=== PATIENT | female | born 1960 | race Caucasian/White ===

== ENCOUNTER 2020-12-24 09:52 | Outpatient (REF) | payer MEDICAID, SELFPAY ==
--- NOTE | ~2020-12-24 | XR_ITS ---
EXAMINATION: CR X-RAY KNEE BILATERAL 4 VIEW CLINICAL INFORMATION: The pain. COMPARISON: None TECHNIQUE: 4 views each of the bilateral knees were obtained FINDINGS: There is no acute fracture or dislocation. The joint spaces are unremarkable. There is no joint effusion. The soft tissues are unremarkable. XR/XR knee RT 4V IMPRESSION: Unremarkable bilateral knees.
--- NOTE | ~2020-12-24 | XR_ITS ---
EXAMINATION: CR X-RAY KNEE BILATERAL 4 VIEW CLINICAL INFORMATION: The pain. COMPARISON: None TECHNIQUE: 4 views each of the bilateral knees were obtained FINDINGS: There is no acute fracture or dislocation. The joint spaces are unremarkable. There is no joint effusion. The soft tissues are unremarkable. XR/XR knee LT 4V IMPRESSION: Unremarkable bilateral knees.
== END 2020-12-24 09:53 | disposition home or self-care (01) ==
LOC: HO.XRAY 09:52
PROVIDERS: PCP Internal Medicine Geriatric Medicine; Visit Provider Internal Medicine Geriatric Medicine
DX: M25.561 Pain in right knee (principal); M25.562 Pain in left knee
CPT/HCPCS: 73564

== ENCOUNTER → 2021-01-15 08:33 | Outpatient (BNVA) | payer MEDICAID, SELFPAY | PROVIDERS: PCP Internal Medicine Geriatric Medicine; Visit Provider Anesthesiology | DX: M47.816 Spondylosis without myelopathy or radiculopathy, lumbar region (principal); M54.81 Occipital neuralgia; M54.5 Low back pain; G89.4 Chronic pain syndrome | CPT/HCPCS: 99202 ==

== ENCOUNTER 2021-06-09 12:25 | Outpatient (REF) | payer MEDICAID, SELFPAY ==
--- NOTE | ~2021-06-09 | MM_ITS ---
EXAMINATION: MM SCREENING DIGITAL BREAST TOMOSYNTHESIS, BILATERAL CLINICAL INFORMATION: Screening. Asymptomatic. The lifetime risk of breast cancer based on the Tyrer-Cuzick Model is 10%. COMPARISON: Mammography: 08/13/2019, 05/29/2018, 04/18/2017 TECHNIQUE: Digital breast tomosynthesis is performed in both the craniocaudal and mediolateral oblique views along with computer-aided detection (CAD). Synthesized 2D images are generated from the tomosynthesis. FINDINGS: There are scattered areas of fibroglandular density (ACR BI-RADS breast composition Category b). There are no significant masses, abnormal calcifications, or other abnormalities. MM/MM tomosynthesis screening BI IMPRESSION: No mammographic evidence of malignancy. ASSESSMENT: BI-RADS 1: Negative RECOMMENDATION: Routine annual mammography screening. This patient's information was entered into a reminder system with a target due date for their next mammogram.
== END 2021-06-09 12:26 | disposition home or self-care (01) ==
LOC: HO.MAMMO 12:25
PROVIDERS: PCP Internal Medicine Geriatric Medicine; Visit Provider Internal Medicine Geriatric Medicine
DX: Z12.31 Encounter for screening mammogram for malignant neoplasm of breast (principal)
CPT/HCPCS: 77063; 77067

== ENCOUNTER → 2022-04-02 20:30 | Outpatient (REF) | payer MEDICAID, SELFPAY | LOC: HO.SL 20:30 | PROVIDERS: PCP Internal Medicine Geriatric Medicine; Visit Provider Internal Medicine Geriatric Medicine | DX: G47.33 Obstructive sleep apnea (adult) (pediatric) (principal) | CPT/HCPCS: 95810 ==

== ENCOUNTER → 2022-06-24 12:53 | Outpatient (BNVA) | payer MEDICAID, SELFPAY | PROVIDERS: PCP Internal Medicine Geriatric Medicine; Visit Provider Nurse Practitioner Family | DX: M47.812 Spondylosis without myelopathy or radiculopathy, cervical region (principal); M54.12 Radiculopathy, cervical region; M62.838 Other muscle spasm; M25.512 Pain in left shoulder; G89.4 Chronic pain syndrome | CPT/HCPCS: 99212 ==

== ENCOUNTER 2022-11-09 10:43 | Outpatient (REF) | payer MEDICAID, SELFPAY ==
--- NOTE | ~2022-11-09 | XR_ITS ---
EXAMINATION: XR CERVICAL SPINE. XR SHOULDER, LEFT. CLINICAL INFORMATION: Chronic neck pain and left shoulder COMPARISON: Radiographs 04/09/2020 TECHNIQUE: 5 views of the cervical spine. 4 views of the left shoulder. FINDINGS: Cervical spine: Moderate-severe degenerative disc disease at C5-C6 with slight retrolisthesis. Vertebral disc heights are otherwise preserved. Uncovertebral hypertrophy mildly narrowing the left C5-C6 neural foramen. No fracture or prevertebral soft tissue swelling. No significant change. Left shoulder: Normal alignment. No significant degenerative findings. No acute abnormality. XR/XR shoulder LT min 2V IMPRESSION: CERVICAL SPINE: Moderate-severe degenerative disc disease at C5-C6 with slight retrolisthesis. No significant change. LEFT SHOULDER: Unremarkable.
--- NOTE | ~2022-11-09 | XR_ITS ---
EXAMINATION: XR CERVICAL SPINE. XR SHOULDER, LEFT. CLINICAL INFORMATION: Chronic neck pain and left shoulder COMPARISON: Radiographs 04/09/2020 TECHNIQUE: 5 views of the cervical spine. 4 views of the left shoulder. FINDINGS: Cervical spine: Moderate-severe degenerative disc disease at C5-C6 with slight retrolisthesis. Vertebral disc heights are otherwise preserved. Uncovertebral hypertrophy mildly narrowing the left C5-C6 neural foramen. No fracture or prevertebral soft tissue swelling. No significant change. Left shoulder: Normal alignment. No significant degenerative findings. No acute abnormality. XR/XR cervical spine 5V IMPRESSION: CERVICAL SPINE: Moderate-severe degenerative disc disease at C5-C6 with slight retrolisthesis. No significant change. LEFT SHOULDER: Unremarkable.
== END 2022-11-09 10:44 | disposition home or self-care (01) ==
LOC: HO.XRAY 10:43
PROVIDERS: PCP Internal Medicine Geriatric Medicine; Visit Provider Internal Medicine Geriatric Medicine
DX: M54.2 Cervicalgia (principal); M79.602 Pain in left arm
CPT/HCPCS: 72050; 73030

== ENCOUNTER 2023-07-06 10:46 | Outpatient (REF) | payer MEDICAID, SELFPAY ==
[2023-07-06 12:50] LABS: Alanine Aminotransferase 11 U/L (0-31); Albumin Level 4.3 g/dL (3.5-5.0); Alkaline Phosphatase 53 U/L (39-117); Anion Gap 13 (12-20); Aspartate Amino Transferase 16 U/L (5-31); Bilirubin Total 0.4 mg/dL (0.0-1.0); Blood Urea Nitrogen 11 mg/dL (9-16); Calcium 9.7 mg/dL (8.4-10.2); Carbon Dioxide 24 mmol/L (22-29); Chloride 109 mmol/L (96-108); Cholesterol 240 mg/dL (<200); Estimated Glomerular Filt Rate > 60; Glucose Random 90 mg/dL (60-115); HDL Cholesterol 51 mg/dL (>40); LDL Cholesterol Calculated 164 mg/dL (<100); Potassium 4.1 mmol/L (3.3-5.1); Sodium 142 mmol/L (135-145); Total Protein 7.5 g/dL (6.5-8.0); Triglycerides 126 mg/dL (<150)
== END 2023-07-06 10:47 | disposition home or self-care (01) ==
LOC: HO.HHCL 10:46
PROVIDERS: Visit Provider Internal Medicine Geriatric Medicine
DX: E78.00 Pure hypercholesterolemia, unspecified (principal); Z79.899 Other long term (current) drug therapy
CPT/HCPCS: 36415; 80053; 80061

== ENCOUNTER 2023-08-01 09:54 | Outpatient (AMB) | payer MEDICAID, SELFPAY ==
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
[2023-08-01 10:01] VITALS: BMI 29.2
== END 2023-08-01 10:38 | disposition home or self-care (01) ==
PROVIDERS: PCP Internal Medicine Geriatric Medicine; Visit Provider Orthopaedic Surgery
DX: M25.512 Pain in left shoulder (principal); M54.12 Radiculopathy, cervical region
CPT/HCPCS: 20610; 99204

== ENCOUNTER → 2023-08-01 09:54 | Outpatient (BNVA) | payer MEDICAID, SELFPAY | PROVIDERS: PCP Internal Medicine Geriatric Medicine; Visit Provider Orthopaedic Surgery | DX: M54.12 Radiculopathy, cervical region (principal); M25.512 Pain in left shoulder | CPT/HCPCS: 20610; 99202; J0665; J1100 ==

== ENCOUNTER 2023-10-10 13:30 | Outpatient (REF) | payer MEDICARE, MEDICAID, SELFPAY ==
[2023-10-12 22:19] LABS: TS Negative Control Passed; TS Panel A 1; TS Panel B 0; TS Positive Control Passed; TSpotTB Negative (Negative)
== END 2023-10-10 13:31 | disposition home or self-care (01) ==
LOC: HO.HHCL 13:30
PROVIDERS: Visit Provider Internal Medicine Geriatric Medicine
DX: Z11.1 Encounter for screening for respiratory tuberculosis (principal)
CPT/HCPCS: 36415; 86481

== ENCOUNTER 2023-10-25 12:50 | Outpatient (REF) | payer MEDICARE, MEDICAID, SELFPAY | END 2023-10-25 12:51 | disposition home or self-care (01) | LOC: HO.MAMMO 12:50 | PROVIDERS: PCP Internal Medicine Geriatric Medicine; Visit Provider Internal Medicine Geriatric Medicine | DX: Z12.31 Encounter for screening mammogram for malignant neoplasm of breast (principal) | CPT/HCPCS: 77063; 77067 ==

== ENCOUNTER → 2023-10-25 13:45 | Outpatient (BNV) | payer MEDICARE, MEDICAID, SELFPAY | PROVIDERS: PCP Internal Medicine Geriatric Medicine; Visit Provider Radiology Diagnostic Radiology | DX: Z12.31 Encounter for screening mammogram for malignant neoplasm of breast (principal) | CPT/HCPCS: 77063; 77067 ==

== ENCOUNTER 2023-11-04 10:19 | Outpatient (REF) | payer MEDICARE, MEDICAID, SELFPAY ==
[2023-11-04 12:39] LABS: ~HepC Num1 0.27 S/CO (0.00-0.79); ~Hepatitis C Antibody Nonreactive (Nonreactive)
[2023-11-04 13:20] LABS: Alanine Aminotransferase 11 U/L (0-31); Albumin Level 4.3 g/dL (3.5-5.0); Alkaline Phosphatase 50 U/L (39-117); Anion Gap 13 (12-20); Aspartate Amino Transferase 15 U/L (5-31); Bilirubin Total 0.5 mg/dL (0.0-1.0); Blood Urea Nitrogen 11 mg/dL (9-16); Calcium 9.7 mg/dL (8.4-10.2); Carbon Dioxide 27 mmol/L (22-29); Chloride 108 mmol/L (96-108); Cholesterol 205 mg/dL (<200); Estimated Glomerular Filt Rate > 60; Glucose Random 84 mg/dL (60-115); HDL Cholesterol 55 mg/dL (>40); LDL Cholesterol Calculated 126 mg/dL (<100); Potassium 4.5 mmol/L (3.3-5.1); Sodium 143 mmol/L (135-145); Total Protein 7.5 g/dL (6.5-8.0); Triglycerides 122 mg/dL (<150)
[2023-11-04 13:28] LABS: TSH reflex Free T4 1.51 uIU/mL (0.32-4.0)
== END 2023-11-04 10:20 | disposition home or self-care (01) ==
LOC: HO.HHCL 10:19
PROVIDERS: Visit Provider Nurse Practitioner Family
DX: Z12.11 Encounter for screening for malignant neoplasm of colon (principal); I10 Essential (primary) hypertension
CPT/HCPCS: 36415; 80053; 80061; 84443; 86803

== ENCOUNTER 2023-11-16 12:25 | Outpatient (REF) | payer MEDICARE, MEDICAID, SELFPAY ==
--- NOTE | ~2023-11-16 | MM_ITS ---
EXAMINATION: BONE DENSITOMETRY CLINICAL INDICATION: Postmenopausal bone density. COMPARISON: This is the patient's baseline examination. TECHNIQUE: Using a TruQu DXA System (software version: 13.1) manufactured by [employer], dual-energy x-ray absorptiometry was performed of the lumbar spine and left hip. The images are of good technical quality. Summary results are attached. FINDINGS: LEFT FEMUR, NECK: BMD 0.643 g/cm2, Z-score -1.3, T-score -2.8, osteoporosis. LEFT FEMUR, TOTAL: BMD 0.686 g/cm2, Z-score -1.3, T-score -2.6, osteoporosis. AP SPINE L1-L4: BMD 0.753 g/cm2, Z-score -1.8, T-score -3.6, osteoporosis. IDENTIFIED RISK FACTORS: Bilateral ovariectomy, early menopause, secondary osteoporosis, glucocorticoids (chronic), hysterectomy, osteoporosis. HISTORY OF FRACTURE: None listed. MEDICATIONS: Multivitamin, vitamin D. MM/XR DEXA axial skeleton IMPRESSION: 1. DIAGNOSIS: Osteoporosis based on the lowest T-score value of -3.6 in the lumbar spine applying World Health Organization criteria. 2. 10-YEAR FRACTURE RISK PREDICTION, FRAX: According to the guidelines, FRAX calculation should only be performed on patients in the osteopenia bone density category. Therefore, FRAX was not performed on this patient.? 3. Treatment Recommendations: NOF guidelines recommend consideration for treatment in postmenopausal women and men age 50 and older presenting with the following: -A hip or vertebral (clinical or morphometric) fracture. -T-score less than or equal to -2.5 at the femoral neck or spine after appropriate evaluation to exclude secondary causes. -Low bone mass at the hip or spine and a 10-year fracture probability by FRAX of greater than or equal to 3% for hip fracture or greater than or equal to 20% for major osteoporotic fracture based on the [place] adapted WHO algorithm. 4. Other Recommendations: All treatment decisions require clinical judgment and consideration of individual patient factors, including patient preferences, comorbidities, previous drug use, risk factors not captured in the FRAX model (e.g. frailty, falls, vitamin D deficiency, increased bone turnover, interval significant decline in bone density) and possible under or overestimation of fracture risk by FRAX. Additional medical evaluation for secondary cause of low bone mineral density may be appropriate. FUTURE SCAN RECOMMENDATION: People with diagnosed cases of osteoporosis or at high risk for fracture should have regular bone mineral density tests. For patients eligible for Medicare, routine testing is allowed once every 2 years. The testing frequency can be increased to one year for patients who have rapidly progressing disease, those who are receiving or discontinuing medical therapy to restore bone mass, or have additional risk factors.
== END 2023-11-16 12:26 | disposition home or self-care (01) ==
LOC: HO.MAMMO 12:25
PROVIDERS: PCP Internal Medicine Geriatric Medicine; Visit Provider Nurse Practitioner Family
DX: Z13.820 Encounter for screening for osteoporosis (principal); Z78.0 Asymptomatic menopausal state; Z91.89 Other specified personal risk factors, not elsewhere classified
CPT/HCPCS: 77080

== ENCOUNTER 2023-11-22 10:56 | Outpatient (REF) | payer MEDICARE, MEDICAID, SELFPAY ==
[2023-11-22 12:36] LABS: Anion Gap 13 (12-20); Blood Urea Nitrogen 9 mg/dL (9-16); Calcium 10.1 mg/dL (8.4-10.2); Carbon Dioxide 28 mmol/L (22-29); Chloride 104 mmol/L (96-108); Estimated Glomerular Filt Rate > 60; Glucose Random 96 mg/dL (60-115); Potassium 3.7 mmol/L (3.3-5.1); Sodium 141 mmol/L (135-145)
== END 2023-11-22 10:57 | disposition home or self-care (01) ==
LOC: HO.HHCL 10:56
PROVIDERS: Visit Provider Internal Medicine Geriatric Medicine
DX: I10 Essential (primary) hypertension (principal); J45.40 Moderate persistent asthma, uncomplicated
CPT/HCPCS: 36415; 80048

== ENCOUNTER 2024-01-31 11:44 | Outpatient (REF) | payer OTHER, SELFPAY ==
[2024-01-31 16:46] LABS: Vitamin D 25-OH Total 49.3 ng/mL (>30)
== END 2024-01-31 11:45 | disposition home or self-care (01) ==
LOC: HO.HHCL 11:44
PROVIDERS: Visit Provider Internal Medicine Geriatric Medicine
DX: M81.0 Age-related osteoporosis without current pathological fracture (principal)
CPT/HCPCS: 36415; 82306

== ENCOUNTER 2024-10-05 10:16 | Outpatient (REF) | payer OTHER, SELFPAY ==
[2024-10-05 11:23] LABS: MANUAL DIFF FLAG NO
--- OUTSIDE RECORDS SUMMARY | 2024-10-05 11:35 | XMS_ITS | Encounter Summary ---
Author Organization [facility] Address [address] [place] [address] Care Team Providers Care Surgical Endoscopist Name Role Phone Name, Adeel PINEDA Primary Care Provider [phone] Encounter Details Date Type Department Care Team (Late st Contact Info) Description 06/30/2022 Abstract [facility] [address] [place] [address] Provider, MD Jake Social History Tobacco Use Types Packs/Day Years Used Date Smoking Tobacco: Never Assessed Comments Unknown Sex and Gender Information Value Date Recorded Sex Assigned at Female 05/24/2022 10:18 AM EDT Legal Sex Female 10:18 AM EDT Gender Identity Female 05/24/2022 10:18 AM EDT Sexual Orientation Straight 05/24/2022 10 :18 AM EDT documented as of this encounter Plan of Treatment Not on file documented as of this encounter Visit Diagnoses Not on filedocumented in this encounter Care Teams Surgical Endoscopist Relationship Specialty Start Date End Date Name, MD Adeel [address] [place] [address] PCP - General Family Medicine 10/29/15 documented as of this encounter
--- OUTSIDE RECORDS SUMMARY | 2024-10-05 11:35 | XMS_ITS | Encounter Summary ---
Author Organization [employer] Address [address] [place] [address] Care Team Providers Care Plaster Whittler Name Role Phone Name, Adeel PINEDA Primary Care Provider [phone] Reason for Visit * Reason Comments Med Refill Encounter Details Date Type Department Care Team (Late st Contact Info) Description 09/17/2024 Refill [facility] [address] [place], [place] [phone] Name, MD Adeel [address] [place] [address] Social History Tobacco Use Types Packs/Day Years Used Date Smoking Tobacco: Never Smokeless Tobacco: Never Alcohol Use Standard Drinks/Week Comments Never 0 (1 standard drink = 0.6 oz pur e alcohol) Alcohol Answer Date Recorded Frequency of Alcohol Consumption Not on file 02/13/2024 Average Number of Drinks Not on file 024 Frequency of Binge Drinking Not on file 01/23 Score 0 02/13/2024 Depression Answer Date Recorded Patient Health Questionnaire-9 Score 0 11/14/2023 Patient Health Questionnaire-9 Score 0 11/14/2023 Last PHQ-9: Questionnaire Data Not on file 0 11/14/2023 Housing Stability Answer Date Recorded What is your housing situation today? I have perico [facility] 10/21/[address] you li ve. Do you have problems with any of the following? None of the above 10/21/2023 Food Insecurity Answer Date Recorded Within the past 12 months, y ou worried that your food would run out before you got money to buy more: Never True 10/21/2023 Within the past 12 months,th e food you bought just didn't last and you didn't have enough money to get more: Never True Transportation Answer Date Recorded In the past 12 months, has l ack of transportation kept you from medical appts, meetings, work or from getting things needed for daily living? No 10/21/2023 Utilities Answer Date Recorded In the past 12 months, has t he electric, gas, oil or water company threatened to shut off services in your home? No 10/21/2023 Depression Answer Date Recorded Patient Health Questionnaire-2 Score 0 11/14/2023 Comments Unknown Sex and Gender Information Value Date Recorded Sex Assigned at Female 05/24/2022 10:18 AM EDT Legal Sex Female 10:18 AM EDT Gender Identity Female 05/24/2022 10:18 AM EDT Sexual Orientation Straight 05/24/2022 10 :18 AM EDT documented as of this encounter Plan of Treatment Not on file documented as of this encounter Visit Diagnoses Not on filedocumented in this encounter Additional Health Concerns Assessment Noted Time PHQ-9 Depression Total Score: 0 11/14/19 24 1:22 PM EDT documented as of this encounter Care Teams Plaster Whittler Relationship Specialty Start Date End Date Name, MD Adeel [address] [place] [address] PCP - General Family Medicine 10/29/15 documented as of this encounter
--- OUTSIDE RECORDS SUMMARY | 2024-10-05 11:35 | XMS_ITS ---
Author Name Haroldo ROSE Claudia Claudia alonzo Veronicae Address [address] [place] [address] Phone [phone] [facility] Care Team Providers Care Administrative Judge Name Role Phone Mel Zarco Unavailable [phone] Reason for Referral Not Available Allergies, adverse reactions, alerts Allergen Type Reaction Severity Status Onset Date Percocet Allergy to substance (disorder) Unknown Active N/A Morphine Allergy to substance (disorder) Unknown Active N/A History of medication use Medication Class Instructions Start Date End Date Albuterol Sulfate (2.5 mg/3M L) 0.083% Nebulization Solution INHALE 1 AMPULE USING A NEBULIZER THREE TIMES DAILY 2024-01-27 No Data Available hydroCHLOROthiazide 12.5 mg Tab TAKE 1 T ABLET BY MOUTH EVERY DAY 2023-11-14 No Data Available Calcium Antacid 500 mg Tab Chewable CHEW 1 TABLET BY MOUTH EVERY DAY 2024-02-01 2024-09-13 Arnuity Ellipta 200 MCG/ACT Aerosol Powder Breath Activated INHALE 1 PUFF BY MOUTH EVERY DAY AT THE SAME TIME RINSE MOUTH AFTER USING 2024-01-27 No Data Available Alendronate Sodium 10 mg Tab TAKE 1 TABL ET BY MOUTH BEFORE BREAKFAST WITH A FULL GLASS OF WATER ON AN EMPTY STOMACH Do not lie down for 30 minutes after taking 2024-02-01 No Data Available Acetaminophen Extra Strength 500 mg Tab TAKE 1 TABLET BY MOUTH EVERY 8 HOURS NEEDED 2023-11-03 No Data Available Celecoxib 200 mg Cap TAKE 1 CAPSULE BY M OUTH TWICE DAILY IN THE MORNING AND AT BEDTIME NEEDED FOR MILD PAIN 2024-05-23 No Data Available Baclofen 20 mg Tab TAKE 1 TABLET BY GUSTAVO TH EVERY DAY AT BEDTIME NEEDED FOR MUSCLE SPASMS 2024-05-23 No Data Available Omeprazole 40 mg Cap delayed rel TAKE 1 CAPSULE BY MOUTH EVERY DAY BEFORE BREAKFAST, DO NOT BREAK, CRUSH, DISSOLVE OR CHEW 2024-05-23 No Data Available Atorvastatin Calcium 40 mg Tab TAKE 1 TA BLET BY MOUTH EVERY OTHER DAY 2023-07-07 No Data Available Celecoxib 200 mg Cap Take 1 tab daily PRN 2024-09-13 No Data Available Baclofen 20 mg Tab 1 tablet 4 times socorro ly PRN muscle spasm 2024-09-13 No Data Available Tylenol Extra Strength 500 m g Tab 1-2 tabs by mouth BID PRN for pain 2024-09-13 No Data Available Sertraline 25 mg Tab Take 1 tablet daily 2024-09-13 No Data Available Problem List Problem Status Onset Date Resolved Date Osteoporosis Active 2024-09-13 N/A Hyperlipidemia Active 2024-09-13 N/A Essential (primary) hypertension Active N/A GERD (gastroesophageal reflux disease) Active 18-09-19 N/A Arthritis Active 2024-09-13 N/A Asthma Active 2024-09-13 N/A Moderate major depressive di sorder with anxiety single episode Active 2024-09-13 N/A Vertigo Active 2024-09-13 N/A Other problems related to [facility] facilities and other health care Active 2024-09-13 N/A BMI 29.0-29.9,adult Active 2024-09-13 N/A Encounters Encounters Type Facility Date of Service Diagnosis/Co mplaint New patient, 30-44min 1 stable chronic or 2 minor; add modifier 95 for video, modifier 93 for [email or web address], [place] 09/13/2024 Unspecified asthma, uncomplicatedAge-related osteoporosis without current pathological fractureHyperlipidemia, unspecifiedEssential (primary) hypertensionGastro-esophageal reflux disease without esophagitisUnspecified osteoarthritis, unspecified siteMajor depressive disorder, single episode, moderateOther specified anxiety disordersDizziness and giddinessOther problems related to medical facilities and other health careBody mass index (bmi) 29.0-29.9, adult New patient, 30-44min 1 stable chronic or 2 minor; add modifier 95 for video, modifier 93 for [email or web address], [place] 09/13/2024 New patient, 30-44min 1 stable chronic or 2 minor; add modifier 95 for video, modifier 93 for [email or web address], [place] 09/13/2024 New patient, 30-44min 1 stable chronic or 2 minor; add modifier 95 for video, modifier 93 for phone [facility] [place] 09/13/2024 New patient, 30-44min 1 stable chronic or 2 minor; add modifier 95 for video, modifier 93 for phone [facility] [place] 09/13/2024 New patient, 30-44min 1 stable chronic or 2 minor; add modifier 95 for video, modifier 93 for phone [facility] [place] 09/13/2024 New patient, 30-44min 1 stable chronic or 2 minor; add modifier 95 for video, modifier 93 for phone [facility] [place] 09/13/2024 New patient, 30-44min 1 stable chronic or 2 minor; add modifier 95 for video, modifier 93 for phone [facility] [place] 09/13/2024 New patient, 30-44min 1 stable chronic or 2 minor; add modifier 95 for video, modifier 93 for phone [facility] [place] 09/13/2024 New patient, 30-44min 1 stable chronic or 2 minor; add modifier 95 for video, modifier 93 for phone [facility] [place] 09/13/2024 Vital Signs Date of Collection Vitals 2024-09-13 09:56:07 Height - 144.78 cmWe ight - 61.69 kgBody Mass Index (BMI) - 29.43 kg/m2BP Diastolic - 89.0 mm[Hg]BP Systolic - 148.0 mm[Hg]Pain Scale - 7.0 {score} Social History Social History Social History Observation Description Effec tive Time Current Smoking Status Never smoker 2024-09-22 4 Sex Female Gender identity Woman History of Procedures Procedures Service Procedure code Service date Servicing provider Phone# New patient, 30-44min 1 stable chronic or 2 minor; add modifier 95 for video, modifier 93 for phone [id number] 2024-09-13 No Data Available No Data Available Medication List Documented (1159F) 1159F 2024-09-13 No Data Available No Data Krystle ilable Medication Review by prescribing provider or pharmacist documented (1160F) 1160F 2024-09-13 No Data Available No Data Krystle ilable Functional Status Assessed (1170F) 1170F 2024-09-13 No Data Available No Data Avail able Advance Care Directive Advance care planning discussion documented in the medical record (1158F) 1158F 2024-09-13 No Data Available No Data Availa ble Advance care planning discussed and documented ? advance care plan or surrogate decision-maker was documented in the medical record. (1123F) 1123F 2024-09-13 No Data Available No Data Availa ble Pain Assessment - NO pain present (1126F) 1126F 2024-09-13 No Data Available No Data A vailable Pain Assessment - Pain Documented on a Pain Scale (1125F) 1125F 2024-09-13 No Data Available No Data Krystle ilable SBP >= 140 3077F 2024-09-13 No Data Available No Data Available BMI obtained (3008F) 3008F 2024-09-13 No Data Availab le No Data Available Functional Status Functional Category Effective Dates Cognition Status: Oriented to Person, Pl viviane and Time 2024-09-13 ADL: Bathing Needs Assistanc e , Dressing Needs Assistance , Eating Independent , Ambulation Needs Assistance , Transferring Needs Assistance and Toileting Needs Assistance 2024-09-13 IADL: Medication Needs Nikki tance , Meal Prep Needs Assistance , Shopping Needs Assistance , Driving or Public Transport Needs Assistance , Housework Needs Assistance , Finances Independent 2024-09-13 How many falls within the last 6 months? None 2024-09-13 Do you feel unsteady on your feet? Yes Do you worry about falling? Yes DME used with ambulation: [facility] 2024-08-26 0 Near falls within the last 6 months? Non e 2024-09-13 Social Supports - # of Inter actions with Friends/Family in a typical week: family 2024-09-13 Mental Status No Information Assessments Date of Service Assessments 2024-09-13 09:56:07 AsthmaOsteoporosisHy perlipidemiaEssential (primary) hypertensionGERD (gastroesophageal reflux disease)ArthritisModerate major depressive disorder with anxiety single episodeVertigoOther problems related to medical facilities and other health careBMI 29.0-29.9,adult Plan of Care Date of Service Plans 2024-09-13 09:56:07 Medication Review by prescribing provider or pharmacist documented (1160F)Medication List Documented (1159F)Functional Status Assessed (1170F)Advance Care Directive Advance care planning discussion documented in the medical record (1158F)New patient, 30-44min 1 stable chronic or 2 minor; add modifier 95 for video, modifier 93 for phonePain Assessment - Pain Documented on a Pain Scale (1125F)Advance care planning discussed and documented ? advance care plan or surrogate decision-maker was documented in the medical record. (1123F)SBP >= 140DBP 80-89 (3079F)BMI obtained (3008F)Continue to see PCP. Follow-up with [facility] as needed for any acute or disease education needs that may arise.Rx: albuterol, arnuityPatient to avoid triggers, if patient experiences exacerbations to call CB and pcpRx: alendronate- importance of dietary intake such as vitamin D and calcium intake, like sugary drinks and to do weight bearing exercise.Rx: atorvastatin weight management, exercising regularly, eating a diet low in saturated or transfat, no smoking, and limiting alcohol intake.Rx: HCTZMonitor BP routinely, low salt diet, exercise as tolerable, and continue f/u care with PCP.Rx: omeprazole Don't lie down for at least 2 to 3 hours after eating small meals, avoid fatty foods, avoid spicy food, avoid chocolate, avoided caffeinated drinks, avoid alcoholic beverages.- stretching, range of motion exercise such as ( walking , cycling, or water exercise). rest when in pain exacerbation-patient educated on the importance of f/u with phycologist and psychiatrist , importance of medication compliance and not to stop abruptly. also patient made aware not to mix medications with alcohol. if patient is presenting an episode of depression to seek medical assistance or to call [facility]. sees therapist 2 times per month psychaitrist every 2-3 months 09/13/2024 patient states she feels well, patients daughter 2017 from a MVA on the month of August . denies suicidal thoughts, patient states she goes to yarsanism and listen to music and it helps her.lying still in a quiet, darkened room may help to ease any symptoms of nausea and reduce the sensation of spinning.HYPERTENSION CONTINGENCY PLANLast updated: 09/13/2024Member to call for the following symptoms: BP >180/100??/ Chest pain??/ Headache/ HR >100??Planned intervention: Encourage low sodium diet/ Discuss breathing exercises/ Encourage medication adherencepatient educated on the importance of diet compliance or modifications and exercise as tolerated Goals Date Goal 2024-09-13 At least 50% of time spent counseling pt, discussing diagnosis, treatment plan, compliance, and coordinating followup care. Continue taking medications as directed and keep all follow up appointments with established PCP and Specialist Health Concerns Date Concern 2024-09-13 Visit completed by a lamont and video. Patient/Guardian agreed to visit via telehealth. Introductory visit with [place] to establish care. Informed verbal consent was obtained from this patient to communicate and provide care using virtual and other telecommunications tools. This patient has been explained the risks, if any, related to the encounter. I explained that care provided through video or audio communication cannot replace the need for physical examination or an in-person visit for some disorders or urgent problems.Reviewed Allergies, Medications, Active Medical conditions, past medical/surgical history, Social history. 2024-09-13 Most recent hospital stay(s) or ER visit(s) and precipitating factors: no recent ER visits
--- OUTSIDE RECORDS SUMMARY | 2024-10-05 11:35 | XMS_ITS | Encounter Summary ---
Author Organization [employer] Address [address] [facility] [facility] [address] [place] [address] Care Team Providers Care Mill Operator Helper Name Role Phone Name, Adeel PINEDA Primary Care Provider [phone] Reason for Visit * Reason Comments Med Refill Encounter Details Date Type Department Care Team ([facility] st Contact Info) Description 11/02/2023 Refill [facility] MEDICINE [address], [place] [phone] Name, MD Adeel [address] [place] [address] Cough, unspecified type Social History Tobacco Use Types Packs/Day Years Used Date Smoking Tobacco: Never Smokeless Tobacco: Never Alcohol Use Standard Drinks/Week Comments Never 0 (1 standard drink = 0.6 oz pur e alcohol) Depression Answer Date Recorded Patient Health Questionnaire-9 Score 0 07/06/2022 Housing Stability Answer Date Recorded What is [...] Date Recorded Patient Health Questionnaire-2 Score 0 07/06/2022 Comments Unknown Sex and Gender Information Value Date Recorded Sex Assigned at Female 05/24/2022 10:18 AM EDT Legal Sex Female 10:18 AM EDT Gender Identity Female 05/24/2022 10:18 AM EDT Sexual Orientation Straight 05/24/2022 10 :18 AM EDT documented as of this encounter Plan of Treatment Not on file documented as of this encounter Visit Diagnoses Diagnosis Cough, unspecified type documented in this encounter Additional Health Concerns Assessment Noted Time PHQ-9 Depression Total Score: 0 07/06/20 10:48 AM EST documented as of this encounter Care Teams Mill Operator Helper Relationship Specialty Start Date End Date Name, MD Adeel [address] [place] [address] PCP - General Family Medicine 10/29/15 documented as of this encounter
--- OUTSIDE RECORDS SUMMARY | 2024-10-05 11:35 | XMS_ITS | Encounter Summary ---
Author Organization [employer] [facility] Address [address] [facility] [address] [place] [address] Care Team Providers Care Machine Setter Sheet Metal Name Role Phone Name, Adeel PINEDA Primary Care Provider [phone] Encounter Details Date Type Department Care Team (Late st Contact Info) Description 12/03/2022 Abstract [facility] MEDICINE [address] [place] [address] Name, MD Adeel [address] [place] [address] Social History Tobacco Use Types Packs/Day Years Used Date Smoking Tobacco: Never Smokeless Tobacco: Never Depression Answer Date Recorded Patient Health Questionnaire-9 Score 0 07/06/2022 Depression Answer Date Recorded Patient Health Questionnaire-2 [...] documented as of this encounter Care Teams Machine Setter Sheet Metal Relationship Specialty Start Date End Date NameAdeel MD [address] [place] [id number] PCP - General Family Medicine 10/29/15 documented as of this encounter
--- OUTSIDE RECORDS SUMMARY | 2024-10-05 11:35 | XMS_ITS | Encounter Summary ---
Author Organization [employer] Address [address] [place] [address] Care Team Providers Care Police Officer Name Role Phone Name, Adeel PINEDA Primary Care Provider [phone] Reason for Visit * Reason Comments Med Refill Encounter Details Date Type Department Care Team (Late st Contact Info) Description 09/13/2024 Refill [facility] MEDICINE [address] [place], [place] [phone] Name, MD Adeel [address] [place] [address] Moderate persistent asthma without complication Social History Tobacco Use Types Packs/Day Years [...] as of this encounter Visit Diagnoses Diagnosis Moderate persistent asthma without complication documented in this encounter Additional Health Concerns Assessment Noted Time PHQ-9 Depression Total Score: 0 11/14/19 24 1:22 PM EDT documented as of this encounter Care Teams Police Officer Relationship Specialty Start Date End Date Name, MD Adeel [address] [place] [id number] PCP - General Family Medicine 10/29/15 documented as of this encounter
--- OUTSIDE RECORDS SUMMARY | 2024-10-05 11:35 | XMS_ITS | Clinical Summary ---
Author Organization [employer] Address [address] [place] [address] Care Team Providers Care Oral Surgery Technician Name Role Phone Name, Adeel PINEDA Primary Care Provider [phone] Allergies Active Allergy Reactions Criticality Noted Date Comments Acetaminophen 04/02/2014 Hives/skin rash Morphine 04/28/2012 Oxycodone 04/28/2012 Other reaction(s): Hives / Skin Rash Penicillin V 10/20/2010 Other reaction(s): unspecified Tramadol 11/07/2013 Other reaction(s): Hives / Skin Rash Medications Spacer/[facility] misc Q4h prn Active Nebulizers (Hilmar Choice Nebulizer) misc Q4h prn Acti ve sertraline (Zoloft) 50 MG tablet Take 1 tablet (50 mg) by mouth in the morning. 30 tablet 11 02/09/20 23 Active SUMAtriptan (Imitrex) 25 MG tablet Take 1 tablet (25 mg) by mouth 1 (one) time if needed for migraine for up to 1 dose. After onset of migraine, may repeat after 2 hours if headache returns, not exceed 200mg in 24 hrs 9 tablet 11 02/09/20 23 Active meclizine (Antivert) 25 MG tabletIndicatio ns:Vertigo TAKE 1 TABLET BY MOUTH TWICE DAILY NEEDED FOR DIZZINESS 30 tablet 2 02/09/20 23 Active cloNIDine (Catapres) 0.1 MG tablet TAKE 1 TABLET BY MOUTH AT BEDTIME NEEDED FOR SLEEP & NIGHTMARES 03/29/20 23 Active Blood Pressure Monitor kitIndications: Essential hypertension Check blood pressure twice a wee. Dx hypertension 1 kit 10/28/19 24 Active hydroCHLOROthia zide (HYDRODiuril) 12.5 MG tablet Take 1 tablet (12.5 mg) by mouth Once per day. 30 tablet 11 11/14/19 24 2024 Active albuterol 108 (90 Base) MCG/ACT inhalerIndicati ons:Moderate persistent asthma without complication Inhale 2 puffs every 6 (six) hours if needed for wheezing. Every 4-6 hours as needed 18 g 11 01/27/20 24 Active alendronate (Fosamax) 10 MG tabletIndicatio ns:Age-related osteoporosis without current pathological fracture Take 1 tablet (10 mg) by mouth before breakfast. Take in the morning with a full glass of water, on an empty stomach, and do not take anything else by mouth or lie down for the next 30 min. 30 tablet 11 02/01/20 24 2024 Active calcium carbonate (Tums) 500 MG chewable tablet Chew 1 tablet (500 mg) Once per day. 30 tablet 11 02/01/20 24 2024 Active Multiple Vitamin (Multivitamin) tablet TAKE 1 TABLET BY MOUTH DAILY IN THE MORNING 90 tablet 3 04/13/20 24 Active omeprazole (PriLOSEC) [address] capsule Take 1 capsule (40 mg) by mouth before breakfast. Do not crush or chew. 30 capsule 11 05/23/20 24 2024 Active Acetaminophen Extra Strength 500 MG tablet TAKE 1 TABLET BY MOUTH EVERY 8 HOURS NEEDED 90 tablet 3 06/26/20 24 Active albuterol (2.5 MG/3ML) 0.083% nebulizer solutionIndicat ions:Moderate persistent asthma without complication INHALE 1 AMPULE USING A NEBULIZER THREE TIMES DAILY 90 mL 3 06/29/20 24 Active atorvastatin (Lipitor) 40 MG tablet TAKE 1 TABLET BY MOUTH EVERY OTHER DAY 15 tablet 11 08/23/19 25 Active baclofen (Lioresal) 20 MG tablet TAKE 1 TABLET BY MOUTH EVERY DAY AT BEDTIME NEEDED FOR MUSCLE SPASMS 30 tablet 2 09/13/19 25 Active celecoxib (CeleBREX) 200 MG capsule TAKE 1 CAPSULE BY MOUTH TWICE DAILY IN THE MORNING AND AT BEDTIME NEEDED FOR MILD PAIN 60 capsule 2 09/13/19 25 Active Arnuity Ellipta 200 MCG/ACT inhalerIndicati ons:Moderate persistent asthma without complication INHALE 1 PUFF BY MOUTH EVERY DAY AT THE SAME TIME RINSE MOUTH AFTER USING 30 each 2 09/13/19 25 Active cholecalciferol VITAMIN D (Vitamin D-3) 50 MCG (2000 UT) tablet TAKE 1 TABLET BY MOUTH ONCE DAILY 30 tablet 11 09/18/19 25 Active cholecalciferol (Vitamin D-3) 50 MCG (2000 UT) tablet TAKE 1 TABLET BY MOUTH ONCE DAILY 30 tablet 11 02/09/20 23 2024 Discontinued Arnuity Ellipta 200 MCG/ACT inhalerIndicati ons:Moderate persistent asthma without complication INHALE 1 PUFF BY MOUTH EVERY DAY AT THE SAME TIME RINSE MOUTH AFTER USING. 30 each 2 05/03/20 24 2024 Discontinued celecoxib (CeleBREX) 200 MG capsule Take 1 capsule (200 mg) by mouth if needed in the morning and at bedtime for mild pain. 60 capsule 2 05/23/20 24 2024 Discontinued baclofen (Lioresal) 20 MG tablet Take 1 tablet (20 mg) by mouth if needed at bedtime for muscle spasms. 30 tablet 2 05/23/20 24 2024 Discontinued Active Problems Problem Noted Date Diagnosed Date Age-related osteoporosis wit hout current pathological fracture 02/13/2024 Encounter for screening for malignant neoplasm o f colon 10/28/2023 Essential hypertension 07/05/2022 Assessment & Plan (11/19/2023 3:42 PM EDT): Above goal today, cuff prescribed, measure at home and return to clinic with readings, call for readings >140/>90. Moderate persistent asthma 07/05/2022 Obesity (BMI 30.0-34.9) 07/05/2022 Obstructive sleep apnea syndrome 07/05/2022 Chronic pain 06/13/2018 Migraine 11/24/2016 Recurrent major depression in partial remission 10/25/2016 Vertigo 05/10/2016 Assessment & Plan (11/19/2023 3:43 PM EDT): Intermittent, aware to report any changes or falls Arthritis 07/31/2013 Assessment & Plan (11/19/2023 3:42 PM EDT): Reports interference with ability to complete adls. Anemia 05/10/2012 Backache 03/09/2012 Gastroesophageal reflux disease 03/09/2012 Hyperlipidemia 03/09/2012 Impaired fasting glucose 03/09/2012 Encounters Date Type Department Care Team Description 09/25/2024 1:45 PM EST Office Visit [facility] [address] [place] [address] Name, MD Adeel Chronic right shoulder pain (Primary Dx); Essential hypertension; On statin therapy; NSAID long-term use 09/17/2024 Refill [facility] [address] [place] [address] Name, MD Adeel 09/13/2024 Refill [facility] [address] [place] [address] Name, MD Adeel Moderate persistent asthma without complication 08/23/2024 Refill [facility] [address] [place] [address] Name, MD Adeel 07/26/2024 Telephone [facility] [address], [place] [phone] Brenda Dinh MA jan recalls from Last 3 Months Immunizations Name Administration Dates Next Due Influenza Injectable Quadriv alant Preservative Free IIV4 MDCK 04/26/2020 Influenza injectable quadriv alent IIV4 with preservative 06/13/2018,05/13/2017,05/10/2016 Influenza injectable quadriv alent preservative free 04/12/2023,05/05/2022,04/07/2021,04/19 Influenza, High Dose Seasona l, Preservative Free 05/23/2024 Influenza, IIV3, injectable 04/25/2015 Influenza, Split (incl. neema fied surface antigen) 07/31/2013,06/06/2012 Influenza, seasonal, injecta ble, preservative free 04/18/2009 Moderna Covid-19 Vaccine 12+ 11/12/2021, 07/15/2021,11/19/2020,10/22 Moderna Covid-19 Vaccine 6+ Bivalent 09/29/2022 Pneumococcal Conjugate PCV 20 11/14/2023 Pneumococcal Polysaccharide PPSV23 04/19/2019 RSV Bivalent 11/14/2023 Tdap 07/21/2015,07/09/2011 Family History Medical History Relation Name Comments Coronary artery disease Father Cancer Mother Breast cancer Sister 3 sisters, all of breast cancer Coronary artery disease Sister Diabetes Sister Kidney disease Sister Relation Name Status Comments Father Mother Sister Social History Tobacco Use Types Packs/Day Years Used Date Smoking Tobacco: Never Smokeless Tobacco: Never Tobacco Cessation:Counseling Given: Not Answered Alcohol Use Standard Drinks/Week Comments Never 0 [...] Orientation Straight 05/24/2022 10 :18 AM EDT Last Filed Vital Signs Vital Sign Reading Time Taken Comments Blood Pressure 139/77 09/25/2024 1:44 PM EST Pulse 94 09/25/2024 1:44 PM EST Temperature 37.2 ??C (99 ??F) 09/25/2024 1:44 PM EST Respiratory Rate 21 09/25/2024 1:44 PM EST Oxygen Saturation 98% 09/25/2024 1:44 PM EST Inhaled Oxygen Concentration - - Weight 63.2 kg (139 lb 6.4 oz) 09/25/2024 1:44 P M EST Height 144.8 cm (4' 9 ) 09/25/2024 1:44 PM EST Body Mass Index 30.17 09/25/2024 1:44 PM EST Plan of Treatment Health Maintenance Due Date Last Done Comments CT Colonography 1960 Colonoscopy 1960 Dental Oral Exam 1960 Dental Prophylaxis 1960 Dental X-Ray: Bitewings 1960 Dental X-Ray: Full Mouth 1960 FIT 1960 FOBT 1960 Sigmoidoscopy 1960 Zoster Vaccines (1 of 2) 2008 COVID-19 Vaccine ( season) 2024 09/29/2022, 11/12/2021, 07/15/2021, Additional history exists SDOH Screening 10/20/2024 10/21/2023 Depression Screening 11/13/2024 11/14/2023, 11/14/19 24 Alcohol/Substance Use Screening 02/12/2025 02/13/2024 DTaP/Tdap/Td Vaccines (3 - Td or Tdap) 07/21/2025 07/21/2015, 07/09/2011 Tobacco Screening 09/25/2025 09/25/2024 Mammogram 10/24/2025 10/25/2023, 05/25, 08/06/2019, Additional history exists Colorectal Cancer Screening 12/07/2026 FIT DNA/Cologuard 12/07/2026 12/08/2023 Lipid Panel 11/03/2028 11/04/2023, 06/24, 11/03/2022, Additional history exists Hepatitis C Screening Completed 11/04/2023 Pneumococcal Vaccine: 50+ Years Completed 11/14/2023, 04/19/2019 RSV Patients and Patients Aged 60 years or older Completed 11/14/2023 Influenza Vaccine Completed 05/23/2024, , 05/05/2022, Additional history exists HIB Vaccines Aged Out No longer eligi ble based on patient's age to complete this topic HPV Vaccines Aged Out No longer eligi ble based on patient's age to complete this topic Hepatitis A Vaccines Aged Out No long er eligible based on patient's age to complete this topic Hepatitis B Vaccines Aged Out No long er eligible based on patient's age to complete this topic IPV Vaccines Aged Out No longer eligi ble based on patient's age to complete this topic Meningococcal Vaccine Aged Out No melquiades aftab eligible based on patient's age to complete this topic RSV under 20 months Aged Out No longe r eligible based on patient's age to complete this topic Rotavirus Vaccines Aged Out No longer eligible based on patient's age to complete this topic Procedures Procedure Name Priority Date/Time Associated Diagnosis Comments LAB COLOGUARD?? COLON CANCER SCREEN Routine 12/08/2023 11:00 AM EDT Encounter for screening for malignant neoplasm of colon HEPATITIS C ANTIBODY Routine 11/04/2023 10:30 AM EDT Encounter for screening for malignant neoplasm of colon LIPID PANEL, STANDARD Routine 11/04/2023 10:30 AM EDT Essential hypertension BI MAMMOGRAM SCREENING TOMOSYNTHESIS BILATERAL Routine 10/25/2023 1:56 PM EDT from Last 3 Months or Most Recently Relevant to Health Maintenance Results * Cologuard?? colon cancer screening (12/08/2023 11:00 AM EDT) Cologuard Result Negative Negative 12/14/19 9:47 AM EDT [facility] (CLIA #:[id number]) Comment: NEGATIVE TEST RESULT. A negative Cologuard result indicates a low likelihood that a colorectal cancer (CRC) or advanced adenoma (adenomatous polyps with more advanced pre-malignant features) ??is present. The chance that a person with a negative Cologuard test has a colorectal cancer is less than 1 in 1500 (negative predictive value >99.9%) or has an ??advanced adenoma is less than ??5.3% (negative predictive value 94.7%). These data are based on a prospective cross-sectional study of 10,000 individuals at average risk for colorectal cancer who were screened with both Cologuard and colonoscopy. (Royal Ross al, N Engl J Med 2014;370(14):1286- 1297) The normal value (reference range) for this assay is negative. COLOGUARD RE-SCREENING RECOMMENDATION: Periodic colorectal cancer screening is an important part of preventive healthcare for asymptomatic individuals at average risk for colorectal cancer. ??Following a negative Cologuard result, the [place] [employer] and U.S. Multi-Society Task Force screening guidelines recommend a Cologuard re-screening interval of 3 years. References: [place] [employer] Guideline for Colorectal Cancer Screening: https://www.cancer.org/cancer/cagdr-oeuqsh-cdnkte/opygdqjof-kyilbsuzf-ofkkxdl/ac s-rec ommendations.html.; Mansoor DK, Angelica BEAN, Leigh BlackmonK, Colorectal Cancer Screening: Recommendations for Physicians and Patients from the U.S. Multi-Society Task Force on Colorectal Cancer Screening , Am J Gastroenterology 2017; 112:9600-8285. TEST DESCRIPTION: Composite algorithmic analysis of stool DNA-biomarkers with hemoglobin immunoassay. ?? Quantitative values of individual biomarkers are not reportable and are not associated with individual biomarker result reference ranges. Cologuard is intended for colorectal cancer screening of adults of either sex, 45 years or older, who are at average-risk for colorectal cancer (CRC). Cologuard has been approved for use by the U.S. FDA. The performance of Cologuard was established in a cross sectional study of average-risk adults aged 50-84. Cologuard performance in patients ages 45 to 49 years was estimated by sub-group analysis of near-age groups. Colonoscopies performed for a positive result may find as the most clinically significant lesion: colorectal cancer [4.0%], advanced adenoma (including sessile serrated polyps greater than or equal to 1cm diameter) [20%] or non- advanced adenoma [31%]; or no colorectal neoplasia [45%]. These estimates are derived from a prospective cross-sectional screening study of 10,000 individuals at average risk for colorectal cancer who were screened with both Cologuard and colonoscopy. (Royal Ross al, N Engl J Med 2014;370(14):4225-5760.) Cologuard may produce a false negative or false positive result (no colorectal cancer or precancerous polyp present at colonoscopy follow up). A negative Cologuard test result does not guarantee the absence of CRC or advanced adenoma (pre-cancer). The current Cologuard screening interval is every 3 years. ([place] [employer] and U.S. Multi-Society Task Force). Cologuard performance data in a 10,000 patient pivotal study using colonoscopy as the reference method can be accessed at the following location: www.[employer]/results. Additional description of the Cologuard test process, warnings and precautions can be found at www.cologuard.com. Stool specimen (specimen) Rectal contents / Unknown 12/08/2023 11:00 AM EDT 12/09/2023 10:57 AM EDT Ara Sher NP LAB MOLECULAR DIAGNOSTICS ORDERA BLES Final Result Performing Organization Address City/[facility]/ZIP Co de Phone Number [facility] (CLIA #:[id number]) [place] [address], * Hepatitis C Ab (11/04/2023 10:30 AM EDT) Hepatitis C Antibody Nonreactive Nonreactive [facility] Comment:Antibodies to HCV no t detected; does not exclude early acuteHCV infection. Blood Venous blood specimen / Unknown 11/04/2023 10:30 AM EDT 11/04/2023 11:25 AM EDT Ara Sher NP LAB BLOOD ORDERABLES Final Resul t [facility] [address] [place] [address] [phone] * (ABNORMAL) Lipid Panel, Standard (11/04/2023 10:30 AM EDT) Triglycerides 122 <150 mg/dL [facility] Comment:Desirable Triglyceri de: less than 150 mg/dLBorderline High Triglyceride 150-199 mg/dLHigh Triglyceride: 200-499 mg/dLVery High Triglyceride: greater than or equal to 5OO mg/dL Cholesterol 205(H) <200 mg/dL [facility] Comment:Desirable Cholestero l: less than 200 mg/dLBorderline High Cholesterol: 200-239 mg/dLHigh Cholesterol: greater than 239 mg/dL LDL Cholesterol Calculated 126(H) <100 mg/dL [facility] Comment:Desirable LDL: less than 100 mg/dLNear Optimal/Above Optimal LDL: 110- 129 mg/dLBorderline High LDL: 130-159 mg/dLHigh LDL: 160-189 mg/dLVery High LDL: greater than or equal to 190 mg/dL HDL Cholesterol 55 >40 mg/dL [facility] Comment:Desirable HDL: great er than 40 mg/dL Note: This HDL assay may give artificially low results in patients with liver disease. Blood Venous blood specimen / Unknown 11/04/2023 10:30 AM EDT 11/04/2023 11:25 AM EDT Ara Sher [facility] LAB BLOOD ORDERABLES Final Resul t [facility] [address] [place] [address] [phone] * BI Mammogram Screening Tomosynthesis Bilateral (10/25/2023 1:56 PM EDT) Anatomical Region Laterality Modality Breast Bilateral Mammography 10/25/2023 1:56 PM EDT Narrative 11/07/2023 4:45 AM EDT ? [facility] ? [address] ?[place] [address] ? Mammography Report ? Signed ? Patient: Callahan Apul,Verito ?MR#: [id number] ?? [id number] ? : 1960 ?Acct:[id number] ? Age/Sex: 63 / F ?ADM Date: 10/25/23 ? Loc: HO.MAMMO ? Attending Dr: Adeel Rockwell MD ? Ordering Physician: Luli,Adeel PINEDA ?Results: 1Negative ? Date of Service: 10/25/23 ?Follow Up: 1 Year From Orig ?? inal Mammogram ? Procedure(s): MM tomosynthesis screening BI ?? Accession Number(s): [id number] ? cc: Name,Adeel PINEDA ? EXAMINATION: ?? MM SCREENING DIGITAL BREAST TOMOSYNTHESIS, BILATERAL ? CLINICAL INFORMATION: ? Screening. Asymptomatic. ? COMPARISON: ?? Mammography: This study is compared with prior exams dating back to ?? 2018. ? TECHNIQUE: ?? Digital breast tomosynthesis is performed in both the craniocaudal and ?? mediolateral oblique views along with computer-aided detection (CAD). ?? Synthesized 2D images are generated from the tomosynthesis. ? FINDINGS: ?? The breasts are heterogeneously dense, which may obscure small masses ?? (ACR BI-RADS breast composition Category c). ? There are no significant masses, abnormal calcifications, or other ?? abnormalities. ? MM/MM tomosynthesis screening BI ?? IMPRESSION: ?? No mammographic evidence of malignancy. ? ASSESSMENT: ? BI-RADS BI-RADS 1 - Negative ? RECOMMENDATION: ?? Routine annual mammography screening. ? 1 year F/U ? This examination should not preclude the clinical evaluation of a ?? suspicious palpable abnormality. ? This patient's information was entered into a reminder system with a ?? target due date for their next mammogram. ? Dictated By: ?Norma Younger MD ? Signed By: ?<Electronically signed by Norma Younger MD in OV> ? 11/07/23441 ? DD/ 1356 ? TD/TT: ? Financial Services Manager: ? Procedure Note Donyahirter, Image - 11/07/2023 [facility] [address] [place] [address] Mammography Report Signed Patient: Woo Loyola#: M [id number] : 9Acct:[id number] Age/Sex: 63 / FADM Date: 10/25/23 Loc: HO.MAMMO Attending Dr: Adeel Rockwell MD Ordering Physician: Adeel Rockwellesults: 1Negative Date of Service: 10/25/23Follow Up: 1 Year From Orig inal Mammogram Procedure(s): MM tomosynthesis screening BI Accession Number(s): [id number] cc: Adeel Rockwell MD EXAMINATION: MM SCREENING DIGITAL BREAST TOMOSYNTHESIS, BILATERAL CLINICAL INFORMATION: Screening. Asymptomatic. COMPARISON: Mammography: This study is compared with prior exams dating back to 2018. TECHNIQUE: Digital breast tomosynthesis is performed in both the craniocaudal and mediolateral oblique views along with computer-aided detection (CAD). Synthesized 2D images are generated from the tomosynthesis. FINDINGS: The breasts are heterogeneously dense, which may obscure small masses (ACR BI-RADS breast composition Category c). There are no significant masses, abnormal calcifications, or other abnormalities. MM/MM tomosynthesis screening BI IMPRESSION: No mammographic evidence of malignancy. ASSESSMENT: BI-RADS BI-RADS 1 - Negative RECOMMENDATION: Routine annual mammography screening. 1 year F/U This examination should not preclude the clinical evaluation of a suspicious palpable abnormality. This patient's information was entered into a reminder system with a target due date for their next mammogram. Dictated By: Norma Younger MD Signed By: <Electronically signed by Norma Younger MD in OV> 11/07/23 0442 DD/ 1356 TD/TT: Financial Services Manager: Adeel Llui PINEDA IMG BI PROCEDURES Final Result from Last 3 Months or Most Recently Relevant to Health Maintenance Insurance [facility] STANDARD [facility] DUAL COMPLETE DENTAL-[facility] MEDICAID STAND ADULT Advance Directives Documents on File Type Date Recorded Patient Manager Respiratory Expl anation HealthCare Proxy 09/28/2024 3:04 PM Care Teams Oral Surgery Technician Relationship Specialty Start Date End Date Name, MD Adeel [address] [place] [id number] PCP - General Family Medicine 10/29/15
--- OUTSIDE RECORDS SUMMARY | 2024-10-05 11:35 | XMS_ITS | Encounter Summary ---
Author Organization [facility] Address [address] [facility] 7[address] [place] [address] Care Team Providers Care Dean Of Admissions Name Role Phone Adeel Rockwell MD Primary Care Provider Reason for Referral * Consultation (Routine) - Authorized Specialty Diagnoses / Procedures Referred By Joy crowder Referred To Contact Orthopaedic Surgery Diagnoses Chronic right shoulder pain Adeel Rockwell MD [address] [place] [id number] Phone: tel: fax: [facility] Orthopedics [address] [place] [address] Phone: tel: Referral ID Status Reason Start Date Expiration Date Visits Requested Visits Authorized [id number] Authorized Specialty Services Required 09/25/2024 09/25/2025 1 1 Reason for Visit * Reason Comments Follow-up Encounter Details Date Type Department Care Team (Late st Contact Info) Description 09/25/2024 1:45 PM EST Office Visit [facility] [address] [place] [id number] Adeel Rockwell MD [address] [place], [place] [phone] Chronic right shoulder pain (Primary Dx); Essential hypertension; On statin therapy; NSAID long-term use Social History Tobacco Use Types Packs/Day Years [...] is your housing situation today? I have pericofabián solano 10/21/[address] you [...] AM EDT documented as of this encounter Last Filed Vital Signs Vital Sign Reading [...] Mass Index 30.17 09/25/2024 1:44 PM EST documented in this encounter Progress Notes * Adeel Rockwell MD - 09/25/2024 1:45 PM EST Subjective Patient ID: Verito Paul is a 64 y.o. female who presents for Follow-up. Patient comes for a follow-up visit. She complains of chronic neck pain. She has severe DJD of the cervical spine. Today she also describes occasional pain on the right shoulder. She denies any recent trauma. Movements of the shoulder causes her discomfort but range of motion is normal. She uses a combination of acetaminophen, Celebrex, muscle relaxants for the pain. She tells me medications help. She is not interested in physical therapy. She asked me for referral back to [facility] orthopedics for right shoulder injection. She e had a left shoulder steroid injection last year that was very beneficial for left shoulder pain. Review of Systems Constitutional: Negative for chills and fever. HENT: Negative for sore throat. Respiratory: Negative for cough, shortness of breath and wheezing. Cardiovascular: Negative for chest pain, palpitations and leg swelling. Gastrointestinal: Negative for abdominal pain. Musculoskeletal: Weeks of neck and right shoulder pain on and off Visit Vitals BP 139/77 (BP Location: Left arm, Patient Position: Sitting, BP Cuff Size: Adult) Pulse 94 Temp 99 ??F (37.2 ??C) (Temporal) Resp 21 Ht 4' 9 (1.448 m) Wt 139 lb 6.4 oz (63.2 kg) SpO2 98% BMI 30.17 kg/m?? Smoking Status Never BSA 1.59 m?? Objective Physical Exam Constitutional: Appearance: Normal appearance. Cardiovascular: Rate and Rhythm: Normal rate and regular rhythm. Heart sounds: No murmur heard. No gallop. Pulmonary: Effort: Pulmonary effort is normal. No respiratory distress. Breath sounds: Normal breath sounds. No wheezing. Musculoskeletal: Cervical back: Spasms and tenderness present. No bony tenderness. Right lower leg: No edema. Left lower leg: No edema. Neurological: Mental Status: She is alert. Motor: No weakness. Ref Range & Units 1 yr ago 3 yr ago White Blood Cell Count 3.8 - 10.8 Thousand/uL 4.9 6.7 Red Blood Cell Count 3.80 - 5.10 Million/uL 4.33 4.17 Hemoglobin 11.7 - 15.5 g/dL 12.6 12.2 Hematocrit 35.0 - 45.0 % 37.8 37.0 MCV 80.0 - 100.0 fL 87.3 MCH 27.0 - 33.0 pg 29.1 29.3 MCHC 32.0 - 36.0 g/dL 33.3 33.0 RDW 11.0 - 15.0 % 12.7 12.8 Platelet Count 140 - 400 Thousand/uL 336 326 Lab Results Component Value Date GLUCOSE 96 11/22/2023 NA 141 11/22/2023 K 3.7 11/22/2023 CO2 28 11/22/2023 CL 104 11/22/2023 BUN 9 11/22/2023 CREATININE 0.62 11/22/2023 [place] [id number] XRay Report Signed Patient: Verito Loyola MR#: [id number] : 1960 Acct:[id number] Age/Sex: 62 / F ADM Date: 11/09/22 Loc: [facility] Attending Dr: Adeel Rockwell MD Ordering Physician: Adeel Rockwell MD Date of Service: 11/09/22 Procedure(s): XR cervical spine 5V Accession Number(s): [id number] cc: Adeel Rockwell MD EXAMINATION: XR CERVICAL SPINE. XR SHOULDER, LEFT. CLINICAL INFORMATION: Chronic neck pain and left shoulder COMPARISON: Radiographs 04/09/2020 TECHNIQUE: 5 views of the cervical spine. 4 views of the left shoulder. FINDINGS: Cervical spine: Moderate-severe degenerative disc disease at C5-C6 with slight retrolisthesis. Vertebral disc heights are otherwise preserved. Uncovertebral hypertrophy mildly narrowing the left C5-C6 neural foramen. No fracture or prevertebral soft tissue swelling. No significant change. Left shoulder: Normal alignment. No significant degenerative findings. No acute abnormality. XR/XR cervical spine 5V IMPRESSION: CERVICAL SPINE: Moderate-severe degenerative disc disease at C5-C6 with slight retrolisthesis. No significant change. LEFT SHOULDER: Unremarkable. Assessment/Plan Diagnoses and all orders for this visit: Chronic right shoulder pain Comments: Referral to [facility] orthopedics as requested. Continue current regimen of Tylenol, Celebrex as needed. Continue PPI for prophylaxis of GI side effects of Celebrex. Orders: - CBC auto differential; Future - Comprehensive Metabolic Panel; Future - Lipid Panel, Standard; Future - Referral to Orthopaedic Surgery; Future Essential hypertension Comments: Well-controlled. Continue current dose of HCTZ and recheck CMP Orders: - CBC auto differential; Future - Comprehensive Metabolic Panel; Future - Lipid Panel, Standard; Future On statin therapy Comments: Continue statin and check fasting blood work listed below Orders: - CBC auto differential; Future - Comprehensive Metabolic Panel; Future - Lipid Panel, Standard; Future NSAID long-term use Comments: Recheck CBC and CMP. Continue PPI for prophylaxis of GI side effects. Orders: - CBC auto differential; Future - Comprehensive Metabolic Panel; Future - Lipid Panel, Standard; Future documented in this encounter Plan of Treatment Scheduled Orders Name Type Priority Associated Diagnoses Orde r Schedule CBC auto differential Lab Routine Chronic right shoulder pain On statin therapy NSAID long-term use Essential hypertension Expected: 09/25/2024 (Approximate), Expires: 09/25/2025 Comprehensive Metabolic Panel Lab Routine Chronic right shoulder pain On statin therapy NSAID long-term use Essential hypertension Expected: 09/25/2024 (Approximate), Expires: 09/25/2025 Lipid Panel, Standard Lab Routine Chronic right shoulder pain On statin therapy NSAID long-term use Essential hypertension Expected: 09/25/2024 (Approximate), Expires: 09/25/2025 Scheduled Referrals Name Type Priority Associated Diagnoses Order Schedule Referral to Orthopaedic Surgery Outpatient Referral Routine Chronic right shoulder pain Expected: 09/25/2024 (Approximate), Expires: 09/25/2025 documented as of this encounter Visit Diagnoses Diagnosis Chronic right shoulder pain- Primary Pain in joint, shoulder region Essential hypertension Unspecified essential hypertension On statin therapy NSAID long-term use Encounter for long-term (current) use of non-steroidal anti-inflammatories documented in this encounter Additional Health Concerns Assessment Noted Time PHQ-9 Depression Total Score: 0 11/14/19 24 1:22 PM EDT documented as of this encounter Care Teams Dean Of Admissions Relationship Specialty Start Date End Date Name, MD Adeel [address] [place] [address] PCP - General Family Medicine 10/29/15 documented as of this encounter
[2024-10-05 11:38] LABS: Basophils Percent Auto 0.6 % (0-2); Eosinophils Absolute Auto 0.1 X10*3/uL (0.0-0.4); Eosinophils Percent Auto 1.5 % (0-4); Hematocrit 37.6 % (37.0-47.0); Hemoglobin 12.5 g/dl (12.0-16.0); Imm Gran Abs Auto 0.01 X10*3/uL (0.00-0.03); Imm Gran Pct Auto 0.2 % (0.0-0.4); Lymphocytes Absolute Auto 1.8 X10*3/uL (1.2-4.9); Lymphocytes Percent Auto 33.2 % (20-40); Mean Corpuscular HGB Conc 33.2 g/dl (31.0-35.0); Mean Corpuscular Hemoglobin 29.3 pg (27.0-33.0); Mean Corpuscular Volume 88.3 fL (80.0-98.0); Mean Platelet Volume 8.9 fL (9.4-12.3); Monocytes Absolute Auto 0.4 X10*3/uL (0.1-1.2); Monocytes Percent Auto 7.2 % (2-11); Neutrophils Absolute Auto 3.1 x10*3/uL (2.0-8.3); Neutrophils Percent Auto 57.3 % (45-73); Platelet Count 300 X10*3/uL (160-400); Red Blood Count 4.26 X10*6/uL (4.20-5.50); Red Cell Distribution Width 13.2 % (11.0-16.0); White Blood Count 5.4 X10*3/uL (4.8-10.8)
[2024-10-05 11:52] LABS: Alanine Aminotransferase 17 U/L (0-31); Albumin Level 4.4 g/dL (3.5-5.0); Alkaline Phosphatase 47 U/L (39-117); Anion Gap 12 (12-20); Aspartate Amino Transferase 20 U/L (5-31); Bilirubin Total 0.3 mg/dL (0.0-1.0); Blood Urea Nitrogen 10 mg/dL (9-16); Calcium 9.3 mg/dL (8.4-10.2); Carbon Dioxide 25 mmol/L (22-29); Chloride 106 mmol/L (96-108); Cholesterol 248 mg/dL (<200); Estimated Glomerular Filt Rate > 60; Glucose Random 87 mg/dL (60-115); HDL Cholesterol 61 mg/dL (>40); LDL Cholesterol Calculated 172 mg/dL (<100); Potassium 4.2 mmol/L (3.3-5.1); Sodium 139 mmol/L (135-145); Triglycerides 79 mg/dL (<150)
== END 2024-10-05 10:17 | disposition home or self-care (01) ==
LOC: HO.HHCL 10:16
PROVIDERS: Visit Provider Internal Medicine Geriatric Medicine
DX: M25.511 Pain in right shoulder (principal); G89.29 Other chronic pain; I10 Essential (primary) hypertension; Z79.899 Other long term (current) drug therapy; Z79.1 Long term (current) use of non-steroidal anti-inflammatories (NSAID)
CPT/HCPCS: 36415; 80053; 80061; 85025

== ENCOUNTER 2024-11-26 11:23 | Outpatient (REF) | payer OTHER, SELFPAY ==
--- OUTSIDE RECORDS SUMMARY | 2024-11-26 13:11 | XMS_ITS | Encounter Summary ---
Author Organization [employer] [facility] Address [address] [facility] 7t [place] [address] Care Team Providers Care Equipment Maintenance Tech Name Role Phone Name, Adeel PINEDA Primary Care Provider [phone] Encounter Details Date Type Department Care Team (Late st Contact Info) Description 12/03/[address] [facility] [address] [place] [address] Name, MD Adeel [address] [place] [address] Social History Tobacco Use Types Packs/Day Years [...] documented as of this encounter Care Teams Equipment Maintenance Tech Relationship Specialty Start Date End Date Name, MD Adeel [address] [place] [id number] PCP - General Family Medicine 10/29/15 documented as of this encounter
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
--- OUTSIDE RECORDS SUMMARY | 2024-11-26 13:11 | XMS_ITS | Encounter Summary ---
Author Organization [employer] [facility] Address [address] [facility] 7[address] [place] [address] Care Team Providers Care Acid Adjuster Name Role Phone Name, Adeel PINEDA Primary Care Provider [phone] Encounter Details Date Type Department Care Team (Late st Contact Info) Description 06/30/2022 Abstract [facility] [address] [place] [address] Provider, MD Jake Social History Tobacco Use [...] on filedocumented in this encounter Care Teams Acid Adjuster Relationship Specialty Start Date End Date Name, MD Adeel [address] [place] [address] PCP - General Family Medicine 10/29/15 documented as of this encounter
--- OUTSIDE RECORDS SUMMARY | 2024-11-26 13:11 | XMS_ITS | Encounter Summary ---
Author Organization [employer] Address [address] [facility] 7t [place] [address] Care Team Providers Care Justowriter Operator Name Role Phone Name, Adeel PINEDA Primary Care Provider [phone] Reason for Visit * Reason Comments Med Refill Encounter Details Date Type Department Care Team ([facility] st Contact Info) Description 11/02/2023 Refill [facility] [address] [place], [place] [phone] Name, MD Adeel [address] [place] [address] Cough, unspecified type Social History Tobacco Use [...] documented as of this encounter Care Teams Justowriter Operator Relationship Specialty Start Date End Date Name, MD Adeel [address] [place] [address] PCP - General Family Medicine 10/29/15 documented as of this encounter
--- OUTSIDE RECORDS SUMMARY | 2024-11-26 13:11 | XMS_ITS | Clinical Summary ---
Author Organization [employer] Address [address] [facility] [address] [place] [address] Care Team Providers Care Technical Sales Representative Name Role Phone Name, Adeel PINEDA Primary Care Provider [phone] Allergies Active Allergy Reactions Criticality Noted Date Comments Acetaminophen 04/02/2014 Hives/skin rash Morphine 04/28/2012 Oxycodone 04/28/2012 Other reaction(s): Hives / Skin Rash Penicillin V 10/20/2010 Other reaction(s): unspecified Tramadol 11/07/2013 Other reaction(s): Hives / Skin Rash Medications Spacer/Aero-Hold ing Chambers ([facility]) misc Q4h prn Active Nebulizers ([place] Choice Nebulizer) misc Q4h prn Acti ve sertraline (Zoloft) 50 MG tablet Take 1 tablet (50 mg) by mouth in the morning. 30 tablet 11 3 Active SUMAtriptan (Imitrex) 25 MG tablet Take 1 tablet (25 mg) by mouth 1 (one) time if needed for migraine for up to 1 dose. After onset of migraine, may repeat after 2 hours if headache returns, not exceed 200mg in 24 hrs 9 tablet 11 3 Active meclizine (Antivert) 25 MG tabletIndication s:Vertigo TAKE 1 TABLET BY MOUTH TWICE DAILY NEEDED FOR DIZZINESS 30 tablet 2 3 Active cloNIDine (Catapres) 0.1 MG tablet TAKE 1 TABLET BY MOUTH AT BEDTIME NEEDED FOR SLEEP & NIGHTMARES 3 Active Blood Pressure Monitor kitIndications:E ssential hypertension Check blood pressure twice a wee. Dx hypertension 1 kit 4 Active hydroCHLOROthiaz pedro (HYDRODiuril) 12.5 MG tablet Take 1 tablet (12.5 mg) by mouth Once per day. 30 tablet 11 4 Active albuterol 108 (90 Base) MCG/ACT inhalerIndicatio ns:Moderate persistent asthma without complication Inhale 2 puffs every 6 (six) hours if needed for wheezing. Every 4-6 hours as needed 18 g 11 4 Active alendronate (Fosamax) 10 MG tabletIndication s:Age-related osteoporosis without current pathological fracture Take 1 tablet (10 mg) by mouth before breakfast. Take in the morning with a full glass of water, on an empty stomach, and do not take anything else by mouth or lie down for the next 30 min. 30 tablet 11 4 025 Active calcium carbonate (Tums) 500 MG chewable tablet Chew 1 tablet (500 mg) Once per day. 30 tablet 11 4 025 Active Multiple Vitamin (Multivitamin) tablet TAKE 1 TABLET BY MOUTH DAILY IN THE MORNING 90 tablet 3 4 Active omeprazole (PriLOSEC) [address] capsule Take 1 capsule (40 mg) by mouth before breakfast. Do not crush or chew. 30 capsule 11 4 025 Active Acetaminophen Extra Strength 500 MG tablet TAKE 1 TABLET BY MOUTH EVERY 8 HOURS NEEDED 90 tablet 3 4 Active albuterol (2.5 MG/3ML) 0.083% nebulizer solutionIndicati ons:Moderate persistent asthma without complication INHALE 1 AMPULE USING A NEBULIZER THREE TIMES DAILY 90 mL 3 4 Active atorvastatin (Lipitor) 40 MG tablet TAKE 1 TABLET BY MOUTH EVERY OTHER DAY 15 tablet 11 5 Active baclofen (Lioresal) 20 MG tablet TAKE 1 TABLET BY MOUTH EVERY DAY AT BEDTIME NEEDED FOR MUSCLE SPASMS 30 tablet 2 5 Active celecoxib (CeleBREX) 200 MG capsule TAKE 1 CAPSULE BY MOUTH TWICE DAILY IN THE MORNING AND AT BEDTIME NEEDED FOR MILD PAIN 60 capsule 2 5 Active Arnuity Ellipta 200 MCG/ACT inhalerIndicatio ns:Moderate persistent asthma without complication INHALE 1 PUFF BY MOUTH EVERY DAY AT THE SAME TIME RINSE MOUTH AFTER USING 30 each 2 5 Active cholecalciferol VITAMIN D (Vitamin D-3) 50 MCG (1999 UT) tablet TAKE 1 TABLET BY MOUTH ONCE DAILY 30 tablet 11 5 Active Active Problems Problem Noted Date Diagnosed Date [...] Description 09/25/2024 1:45 PM EST Office Visit [facility] [address] [place], [place] [phone] Name, MD Adeel Chronic right shoulder pain (Primary Dx); Essential hypertension; On statin therapy; NSAID long-term use 09/17/2024 Refill [facility] [address] [place], [place] [phone] NameAdeel MD 09/13/2024 Refill [facility] [address] [place] [address] Name, MD Adeel Moderate persistent asthma without complication from Last 3 Months Immunizations Name Administration [...] 10/20/2024 10/21/2023 Depression Screening 11/13/2024 11/14/2023, 11/14/19 Alcohol/Substance Use Screening 02/12/2025 02/13/2024 DTaP/Tdap/Td Vaccines (3 - Td or Tdap) 07/21/2025 07/21/2015, 07/09/2011 Tobacco Screening 09/25/2025 09/25/2024 Mammogram 10/24/2025 10/25/2023, 05/25, 08/06/2019, Additional history exists Colorectal Cancer Screening 12/07/2026 FIT DNA/Cologuard 12/07/2026 12/08/2023 Lipid Panel 10/05/2029 10/05/2024, 10/23, 07/06/2023, Additional history exists Hepatitis C Screening Completed [...] Procedure Name Priority Date/Time Associated Diagnosis Comments LIPID PANEL, STANDARD Routine 10/05/2024 10:18 AM EDT Chronic right shoulder pain On statin therapy NSAID long-term use Essential hypertension COMPREHENSIVE METABOLIC PANEL Routine 10/05/2024 10:18 AM EDT Chronic right shoulder pain On statin therapy NSAID long-term use Essential hypertension CBC WITH AUTO DIFFERENTIAL Routine 10/05/2024 10:18 AM EDT Chronic right shoulder pain On statin therapy NSAID long-term use Essential hypertension LAB COLOGUARD?? COLON CANCER SCREEN Routine 12/08/2023 11:00 AM EDT Encounter for screening for malignant neoplasm of colon HEPATITIS C ANTIBODY Routine 11/04/2023 10:30 AM EDT Encounter for screening for malignant neoplasm of colon BI MAMMOGRAM SCREENING TOMOSYNTHESIS BILATERAL Routine 10/25/2023 1:56 PM EDT from Last 3 Months or Most Recently Relevant to Health Maintenance Results * (ABNORMAL) CBC auto differential (10/05/2024 10:18 AM EDT) White Blood Count 5.4 4.8 - 10.8 X10*3/uL [facility] Red Blood Count 4.26 4.20 - 5.50 X10*6/uL [facility] Hemoglobin 12.5 12.0 - 16.0 g/dl [facility] Hematocrit 37.6 37.0 - 47.0 % [facility] Mean Corpuscular Volume 88.3 80.0 - 98.0 fL [facility] Mean Corpuscular Hemoglobin 29.3 27.0 - 33.0 pg [facility] Mean Corpuscular HGB Conc 33.2 31.0 - 35.0 g/dl [facility] Red Cell Distribution Width 13.2 11.0 - 16.0 % [facility] Platelet Count 300 160 - 400 X10*3/uL [facility] Mean Platelet Volume 8.9(L) 9.4 - 12.3 fL [facility] Neutrophils Percent Auto 57.3 45 - 73 % [facility] Imm Gran Pct Auto 0.2 0.0 - 0.4 % [facility] Lymphocytes Percent Auto 33.2 20 - 40 % [facility] Monocytes Percent Auto 7.2 2 - 11 % [facility] Eosinophils Percent Auto 1.5 0 - 4 % [facility] Basophils Percent Auto 0.6 0 - 2 % [facility] NRBC Pct Auto 0.0 0.0 - 0.2 /100WBC [facility] Neutrophils Absolute Auto 3.1 2.0 - 8.3 x10*3/uL [facility] Imm Gran Abs Auto 0.01 0.00 - 0.03 X10*3/uL [facility] Lymphocytes Absolute Auto 1.8 1.2 - 4.9 X10*3/uL [facility] Monocytes Absolute Auto 0.4 0.1 - 1.2 X10*3/uL [facility] Eosinophils Absolute Auto 0.1 0.0 - 0.4 X10*3/uL [facility] Basophils Absolute Auto 0.0 0.0 - 0.2 X10*3/uL [facility] NRBC Abs Auto 0.000 0.0 - 0.012 X10*3/uL [facility] Blood Venous blood specimen / Unknown 10/05/2024 10:18 AM EDT 10/05/2024 11:15 AM EDT us Adeel Name LAB BLOOD ORDERABLES Final Resul t [facility] [address] [place] [phone] * (ABNORMAL) Lipid Panel, Standard (10/05/2024 10:18 AM EDT) Triglycerides 79 <150 mg/dL [facility] Comment:Desirable Triglyceri de: less than 150 mg/dLBorderline High Triglyceride 150-199 mg/dLHigh Triglyceride: 200-499 mg/dLVery High Triglyceride: greater than or equal to 5OO mg/dL Cholesterol 248(H) <200 mg/dL [facility] Comment:Desirable Cholestero l: less than 200 mg/dLBorderline High Cholesterol: 200-239 mg/dLHigh Cholesterol: greater than 239 mg/dL LDL Cholesterol Calculated 172(H) <100 mg/dL [facility] Comment:Desirable LDL: less than 100 mg/dLNear Optimal/Above Optimal LDL: 110- 129 mg/dLBorderline High LDL: 130-159 mg/dLHigh LDL: 160-189 mg/dLVery High LDL: greater than or equal to 190 mg/dL HDL Cholesterol 61 >40 mg/dL [facility] Comment:Desirable HDL: great er than 40 mg/dL Note: This HDL assay may give artificially low results in patients with liver disease. Blood Venous blood specimen / Unknown 10/05/2024 10:18 AM EDT 10/05/2024 11:15 AM EDT us Adeel Name LAB BLOOD ORDERABLES Final Resul t [facility] [address] [place] [phone] * Comprehensive Metabolic Panel (10/05/2024 10:18 AM EDT) Sodium 139 135 - 145 mmol/L [facility] Potassium 4.2 3.3 - 5.1 mmol/L [facility] Chloride 106 96 - 108 mmol/L [facility] Carbon Dioxide 25 22 - 29 mmol/L [facility] Anion Gap 12 12 - 20 [facility] Urea Nitrogen (BUN) 10 9 - 16 mg/dL [facility] Creatinine, Serum 0.62 0.5 - 1.4 mg/dL [facility] Estimated Glomerular Filt Rate >60 [facility] Comment:Chronic Kidney Disea se: Estimated GFR < 60 mL/min/1.05i3Ucsauj Kidney Disease: Estimated GFR < 15 mL/min/1.73m2 Glucose 87 60 - 115 mg/dL [facility] Calcium 9.3 8.4 - 10.2 mg/dL [facility] Bilirubin, Total 0.3 0.0 - 1.0 mg/dL [facility] Aspartate Amino Transferase 20 5 - 31 U/L [facility] Alanine Aminotransferase 17 0 - 31 U/L [facility] Total Protein 8.0 6.5 - 8.0 g/dL [facility] Albumin Level 4.4 3.5 - 5.0 g/dL [facility] Alkaline Phosphatase 47 39 - 117 U/L [facility] Blood Venous blood specimen / Unknown 10/05/2024 10:18 AM EDT 10/05/2024 11:15 AM EDT us Adeel Rockwell MD LAB BLOOD ORDERABLES Final Resul t [facility] [address] [place] [phone] * Cologuard?? colon cancer screening (12/08/2023 11:00 AM EDT) Cologuard Result Negative Negative 12/14/19 9:47 AM EDT [employer] (CLIA #:[id number]) Comment: NEGATIVE TEST RESULT. A negative Cologuard [...] cancer. ??Following a negative Cologuard result, the [place] [employer] and U.S. [facility]-Society Task Force screening guidelines recommend a Cologuard re-screening interval of 3 years. References: [place] [employer] Guideline for Colorectal Cancer Screening: https://www.cancer.org/cancer/jewti-alullm-vcxkmq/fcqokfzhl-ubbuhecfn-rgxinoq/ac s-rec ommendations.html.; Mansoor DK, Angelica CR, Leigh BlackmonK, Colorectal Cancer Screening: Recommendations for Physicians and Patients from the U.S. Multi-Society Task Force on Colorectal Cancer Screening , Am J Gastroenterology 2017; 112:0402-5809. TEST DESCRIPTION: Composite algorithmic analysis of stool [...] (Royal Ross al, N Engl J Med 2014;370(14):2257-6615.) Cologuard may produce a false negative or false positive result (no colorectal cancer or precancerous polyp present at colonoscopy follow up). A negative Cologuard test result does not guarantee the absence of CRC or advanced adenoma (pre-cancer). The current Cologuard screening interval is every 3 years. ([place] [employer] and U.S. Multi-Society Task Force). Cologuard performance data in a 10,000 patient pivotal study using colonoscopy as the reference method can be accessed at the following location: www.So1/results. Additional description of the Cologuard test process, warnings and precautions can be found at www.Tink[employer]ad.Online [employer]. Stool specimen (specimen) Rectal contents / Unknown 12/08/2023 11:00 AM EDT 12/09/2023 10:57 AM EDT us Ara Sher NP LAB MOLECULAR DIAGNOSTICS ORDERA BLES Final Result Performing Organization Address City/[facility] Co de Phone Number [employer] (CLIA #:[id number]) [place] [address], * Hepatitis C Ab (11/04/2023 10:30 AM EDT) Pathologist [facility] Hepatitis C Antibody Nonreactive Nonreactive [facility] Comment:Antibodies to HCV no t detected; does not exclude early acuteHCV infection. Blood Venous blood specimen / Unknown 11/04/2023 10:30 AM EDT 11/04/2023 11:25 AM EDT us Ara Sher NP LAB BLOOD ORDERABLES Final Resul t Performing Organization Address [facility] Co de Phone Number [facility] [address] [place] [phone] * BI Mammogram Screening Tomosynthesis Bilateral (10/25/2023 1:56 PM EDT) Anatomical Region Laterality Modality Breast Bilateral Mammography 10/25/2023 1:56 PM EDT Narrative 11/07/2023 4:45 AM EDT ? [facility] [place] ? [address] ?[place] [address] ? Mammography Report ? Signed ? Patient: Callahan Paul,Verito ?MR#: [id number] ?? [id number] ? : 1960 ?Acct:[id number] ? Age/Sex: 63 / F ?ADM Date: 04/02/24 ? Loc: HO.MAMMO ? Attending Dr: Adeel Rockwell MD ? Ordering Physician: Adeel Rockwell MD ?Results: 1Negative ? Date of Service: 10/25/23 ?Follow Up: 1 Year From Orig ?? inal Mammogram ? Procedure(s): MM tomosynthesis screening BI ?? Accession Number(s): [id number] ? cc: Luli,Adeel PINEDA ? EXAMINATION: ?? MM SCREENING DIGITAL [...] by Norma Younger MD in OV> ? 11/07/23 044 ? DD/ 1356 ? TD/TT: ? Leach Runner: ? Procedure Note Donotuseinterpreter, Image - 11/07/2023 [facility] [address] [place], [place] [id number] Mammography Report Signed Patient: Woo Loyola#: [id number] : 9Acct:[id number] Age/Sex: 63 / FADM Date: 10/25/23 Loc: [facility] Attending Dr: Adeel Rockwell MD Ordering Physician: Adeel Rockwell MDResults: 1Negative Date of Service: 10/25/23Follow Up: 1 Year From Orig inal Mammogram Procedure(s): MM tomosynthesis screening BI Accession Number(s): [id number] cc: Adeel Rockwell MD EXAMINATION: MM SCREENING [...] in OV> 11/07/23 0442 DD/ 1356 TD/TT: Leach Runner: Adeel Rockwell MD IMG BI PROCEDURES Final Result from Last 3 Months or Most Recently Relevant to Health Maintenance [place] [address] [place] [address] STANDARD [facility] DUAL COMPLETE DENTAL-[facility] MEDICAID STAND ADULT Advance Directives Documents on File Type Date Recorded Patient Candle Pourer Expl anation HealthCare Proxy 09/28/2024 3:04 PM Care Teams Technical Sales Representative Relationship Specialty Start Date End Date Name, MD Adeel [address] [place] [phone] PCP - General Family Medicine 10/29/15
== END 2024-11-26 11:24 | disposition home or self-care (01) ==
LOC: HO.HOSX 11:23
PROVIDERS: Visit Provider Orthopaedic Surgery
DX: Z13.89 Encounter for screening for other disorder (principal)

== ENCOUNTER 2025-01-21 11:12 | Outpatient (REF) | payer OTHER, SELFPAY ==
--- OUTSIDE RECORDS SUMMARY | 2025-01-21 12:04 | XMS_ITS | Encounter Summary ---
Author Organization [email or web address] Address [address] [facility] [address] [place] [address] Care Team Providers Care Field Pipe Lines Supervisor Name Role Phone Name, Adeel PINEDA Primary Care Provider [phone] Encounter Details Date Type Department Care Team (Late st Contact Info) Description 12/03/2022 Abstract [facility] [address] [place] [address] Name, MD Adeel [address] [place] [address] Social History Tobacco Use Types Packs/Day Years [...] Time PHQ-9 Depression Total Score: 0 07/06/20 22 10:48 AM EST documented as of this encounter Care Teams Field Pipe Lines Supervisor Relationship Specialty Start Date End Date Name, MD Adeel [address] [place] [phone] PCP - General Family Medicine 10/29/15 documented as of this encounter
== END 2025-01-21 11:13 | disposition home or self-care (01) ==
LOC: HO.MAMMO 11:12
PROVIDERS: PCP Internal Medicine Geriatric Medicine; Visit Provider Internal Medicine Geriatric Medicine
DX: Z12.31 Encounter for screening mammogram for malignant neoplasm of breast (principal)
CPT/HCPCS: 77063; 77067

== ENCOUNTER → 2025-01-21 11:45 | Outpatient (BNV) | payer OTHER, SELFPAY | PROVIDERS: PCP Internal Medicine Geriatric Medicine; Visit Provider Internal Medicine | DX: Z12.31 Encounter for screening mammogram for malignant neoplasm of breast (principal) | CPT/HCPCS: 77063; 77067 ==

== ENCOUNTER 2025-02-12 11:18 | Outpatient (REF) | payer OTHER, SELFPAY ==
--- OUTSIDE RECORDS SUMMARY | 2025-02-11 11:30 | XMS_ITS | Encounter Summary ---
Author Organization [employer] Address [address] [facility] [address] [place] [address] Care Team Providers Care Platen Press Feeder Name Role Phone Adeel Rockwell MD Primary Care Provider [phone] Reason for Referral * Consultation (Routine) - Pending Review Specialty Diagnoses / Procedures Referred By Joy crowder Referred To Contact Orthopaedic Surgery Diagnoses Chronic right shoulder pain Adeel Rockwell MD [address] [place] [address] Phone: tel: fax: Referral ID Status Reason Start Date Expiration Date Visits Requested Visits Authorized [id number] Pending Review Specialty Services Required 02/11/2025 02/11/2026 1 1 Reason for Visit * Reason Comments Follow-up Encounter Details Date Type Department Care Team (Latest Contact Info) Description 02/11/2025 11:30 AM EDT Office Visit [facility] [address] [place] [address] [phone] Adeel Rockwell MD [address] [place] [address] Moderate persistent asthma, unspecified whether complicated (Primary Dx); Age-related osteoporosis without current pathological fracture; Chronic right shoulder pain; Hyperlipidemia, unspecified hyperlipidemia type; Vertigo Social History Tobacco Use Types Packs/Day Years [...] Answer Date Recorded Patient Health Questionnaire-9 Score 8 02/11/2025 Patient Health Questionnaire-9 Score 8 02/11/2025 Last PHQ-9: Questionnaire Data Not on file 0 02/11/2025 Housing Stability Answer Date Recorded What is your housing situation today? I have perico russ 02/11/[address] you li ve. Do you have problems with any of the following? None of the above 02/11/2025 Food Insecurity Answer Date Recorded Within the past 12 months, y ou worried that your food would run out before you got money to buy more: Never True 02/11/2025 Within the past 12 months,th e food you bought just didn't last and you didn't have enough money to get more: Never True Transportation Answer Date Recorded In the past 12 months, has l ack of transportation kept you from medical appts, meetings, work or from getting things needed for daily living? No 02/11/2025 Utilities Answer Date Recorded In the past 12 months, has t he electric, gas, oil or water company threatened to shut off services in your home? No 02/11/2025 Depression Answer Date Recorded Patient Health Questionnaire-2 Score 1 02/11/2025 Internet Access Answer Date Recorded Internet Access Q1 Yes 02/11/2025 Internet Access Q2 Not on file 02/11/2025 Comments Unknown Sex and Gender Information Value Date Recorded Sex Assigned at Female 05/24/2022 10:18 AM EDT Legal Sex Female 10:18 AM EDT Gender Identity Female 05/24/2022 10:18 AM EDT Sexual Orientation Straight 05/24/2022 10 :18 AM EDT documented as of this encounter Last Filed Vital Signs Vital Sign Reading Time Taken Comments Blood Pressure 138/82 02/11/2025 11:29 AM EDT Pulse 81 02/11/2025 11:29 AM EDT Temperature 36.1 C (97 F) 02/11/2025 11:29 AM EDT Respiratory Rate 18 02/11/2025 11:29 AM EDT Oxygen Saturation 97% 02/11/2025 11:29 AM EDT Inhaled Oxygen Concentration - - Weight 64.5 kg (142 lb 3.2 oz) 02/11/2025 11:29 AM EDT Height 144.8 cm (4' 9 ) 02/11/2025 11:29 AM EDT Body Mass Index 30.77 02/11/2025 11:29 AM EDT documented in this encounter Functional Status * Over the past 2 weeks, how often have you been bothered by any of the following problems? Question Answer Date of Assessment Author Patient Health Questionnaire-2 Score 1 02/11/2025 11:31 AM EDT Sonny Dinh MA * Little interest or pleasure in doing things Answer Date of Assessment Author Several days 02/11/2025 11:31 AM EDT Brenda Dinh MA * Feeling down, depressed, or hopeless Answer Date of Assessment Author Not at all 02/11/2025 11:31 AM SAMMIET Brenda Dinh MA * Trouble falling or staying asleep, or sleeping too much Answer Date of Assessment Author Nearly every day 02/11/2025 11:31 AM EDT Brenda Rodrigues MA * Feeling tired or having little energy Answer Date of Assessment Author Several days 02/11/2025 11:31 AM Brenda Velasquez MA * Poor appetite or overeating Answer Date of Assessment Author Several days 02/11/2025 11:31 AM Brenda Velasquez MA * Feeling bad about yourself - or that you are a failure or have let yourself or your family down Answer Date of Assessment Author Not at all 02/11/2025 11:31 AM Brenda Velasquez MA * Trouble concentrating on things, such as reading the newspaper or watching television Answer Date of Assessment Author Several days 02/11/2025 11:31 AM SAMMIET Brenda Dinh MA * Moving or speaking so slowly that other people could have noticed? Or the opposite - being so fidgety or restless that you have been moving around a lot more than usual. Answer Date of Assessment Author Several days 02/11/2025 11:31 AM Brenda Velasquez MA * Thoughts that you would be better off or hurting yourself in some way Answer Date of Assessment Author Not at all 02/11/2025 11:31 AM Brenda Velasquez MA * Patient Health Questionnaire-9 Score Answer Date of Assessment Author 8 02/11/2025 11:31 AM Brenda Velasquez MA * Over the last 2 weeks, how often have you been bothered by any of the following problems? Question Answer Date of Assessment Author Feeling nervous, anxious, or on edge 1 02/11/2025 11:31 AM Lilliam Velasquez MA Not being able to stop or control worrying 3 02/11/2025 11:31 AM Lilliam Velasquez MA Worrying too much about different things 3 02/11/2025 11:31 AM Lilliam Velasquez MA Trouble relaxing 2 02/11/2025 11:31 AM Brenda Velasquez MA Being so restless that it is hard to sit still 2 02/11/2025 11:31 AM Lilliam Velasquez MA Becoming easily annoyed or irritable 2 02/11/2025 11:31 AM Lilliam Velasquez MA Feeling afraid as if something awful might happen 2 02/11/2025 11:31 AM Brenda Garces MA RADHA-7 Total Score 15 02/11/2025 11:31 AM Brenda Velasquez MA documented as of this encounter Progress Notes * Adeel Rockwell MD - 02/11/2025 11:30 AM EDT Subjective Patient ID: Verito Paul is a 64 y.o. female who presents for Follow-up. Patient comes for a follow-up visit. We discussed several issues. She has hyperlipidemia. We have prescribed her statin for primary prevention of cardiovascular disease. In the past she has been noncompliant with the use of statin. She tells me she has been using the medication once or twice a week. She agreed to recheck her fasting blood work. She denies any recent problems with her asthma. She rarely uses albuterol. She has Arnuity at home that she uses 2-3 times a week. She still complains of musculoskeletal discomfort in the right shoulder. No recent trauma. She has decreased range of motion of the right shoulder because of pain. She has difficulties raising the right arm above the head. No swelling or redness. She is not interested in PT. she would like to be referred to orthopedics for steroid injection. She was referred in the past but she missed the appointment because of a family emergency. She has been using her Fosamax and vitamin D for treatment of osteoporosis without any side effects. She requested to refill the meclizine that she uses for occasional vertigo. Review of Systems Constitutional: Negative for chills and fever. HENT: Negative for sore throat. Respiratory: Negative for cough, shortness of breath and wheezing. Cardiovascular: Negative for chest pain, palpitations and leg swelling. Gastrointestinal: Negative for abdominal pain. Musculoskeletal: See HPI Visit Vitals BP 138/82 (BP Location: Left arm, Patient Position: Sitting, BP Cuff Size: Adult) Pulse 81 Temp 97 ??F (36.1 ??C) (Temporal) Resp 18 Ht 4' 9 (1.448 m) Wt 142 lb 3.2 oz (64.5 kg) SpO2 97% BMI 30.77 kg/m?? Smoking Status Never BSA 1.61 m?? Objective Physical Exam Constitutional: Appearance: Normal appearance. Cardiovascular: Rate and Rhythm: Normal rate and regular rhythm. Heart sounds: No murmur heard. No gallop. Pulmonary: Effort: Pulmonary effort is normal. No respiratory distress. Breath sounds: Normal breath sounds. No wheezing. Musculoskeletal: Right shoulder: Decreased range of motion. Right lower leg: No edema. Left lower leg: No edema. Neurological: Mental Status: She is alert. Assessment/Plan Diagnoses and all orders for this visit: Moderate persistent asthma, unspecified whether complicated Comments: Continue current inhalers, reminded to rinse mouth after Anuitiy use Age-related osteoporosis without current pathological fracture Comments: Continue Fosamax and vit D, repeat bone density next year Orders: - alendronate (Fosamax) 10 MG tablet; Take 1 tablet (10 mg) by mouth before breakfast. Take in the morning with a full glass of water, on an empty stomach, and do not take anything else by mouth or lie down for the next 30 min. Chronic right shoulder pain Comments: PRN Tylenol, celebrex for more severe pain, referral to ortho and check X-ray prior to visit Orders: - XR Shoulder 2+ Views Right; Future - Referral to Orthopaedic Surgery; Future Hyperlipidemia, unspecified hyperlipidemia type Comments: Continue statin and check fasting blood work listed below Orders: - Comprehensive Metabolic Panel; Future - Lipid Panel, Standard; Future Vertigo Comments: At the end of visit she asked me for refill of the meclizine and I agreed Orders: - meclizine (Antivert) 25 MG tablet; TAKE 1 TABLET BY MOUTH TWICE DAILY NEEDED FOR DIZZINESS documented in this encounter Plan of Treatment Upcoming Encounters Date Type Department Care Team (Late st Contact Info) Description 04/22/2025 1:00 PM EDT Office Visit [facility] [address] [place] [address] Ehsan, Natali, OD [address] [place] [address] Scheduled Orders Name Type Priority Associated Diagnoses Orde r Schedule Comprehensive Metabolic Panel Lab Routine Hyperlipidemia, unspecified hyperlipidemia type Expected: 02/11/2025 (Approximate), Expires: 02/11/2026 Lipid Panel, Standard Lab Routine Hyperlipidemia, unspecified hyperlipidemia type Expected: 02/11/2025 (Approximate), Expires: 02/11/2026 Scheduled Referrals Name Type Priority Associated Diagnoses Order Schedule Referral to Orthopaedic Surgery Outpatient Referral Routine Chronic right shoulder pain Expected: 02/11/2025 (Approximate), Expires: 02/11/2026 documented as of this encounter Procedures Procedure Name Priority Date/Time Associated Diagnosis Comments XR SHOULDER 2+ VIEWS RIGHT Routine 02/12/2025 11:01 AM EDT Chronic right shoulder pain documented in this encounter Results * XR Shoulder 2+ Views Right (02/12/2025 11:01 AM EDT) Anatomical Region Laterality Modality Upper Extremities, Shoulder Right Radi ographic Imaging 02/12/2025 11:0 1 AM EDT Narrative 02/12/2025 12:07 PM EDT [address] [address] XRay Report Signed Patient: Verito Loyola MR#: [id number] : 1960 Acct:[id number] Age/Sex: 64 / F ADM Date: 02/12/25 Loc: [facility] Attending Dr: Adeel Rockwell MD Ordering Physician: Adeel Rockwell MD Date of Service: 02/12/25 Procedure(s): XR shoulder RT min 2V Accession Number(s): [id number] cc: Adeel Rockwell MD EXAMINATION: XR SHOULDER, RIGHT CLINICAL INFORMATION: Chronic right shoulder pain and decreased ROM COMPARISON: None available. TECHNIQUE: AP external rotation, Grashey, scapular Y, and axillary views of the right shoulder. FINDINGS: Mild degenerative changes are present in the AC joint. There is mild narrowing and marginal osteophytes. The glenohumeral joint is intact without dislocation or joint space narrowing. There are no abnormal soft tissue calcifications. XR/XR shoulder RT min 2V IMPRESSION: Mild AC joint arthropathy. Electronically signed by: Son Bazan MD 02/12/2025 12:05 PM EDT Dictated By: Son Bazan MD Signed By: <Electronically signed by Son Bazan MD in OV> 02/12/25 1205 DD/ 1101 TD/TT: 02/12/25 1110 Reading Assistant: Procedure Note Donotuseinterpreter, Image - 02/12/[address] [address] XRay Report Signed Patient: Matt LoyolaR#: [id number] : 1960cct:[id number] Age/Sex: 64 / FADM Date: 02/12/25 Loc: [facility] Attending Dr: Adeel Rockwell MD Ordering Physician: Adeel Rockwell MD Date of Service: 02/12/25 Procedure(s): XR shoulder RT min 2V Accession Number(s): [id number] cc: Adeel Rockwell MD EXAMINATION: XR SHOULDER, RIGHT CLINICAL INFORMATION: Chronic right shoulder pain and decreased ROM COMPARISON: None available. TECHNIQUE: AP external rotation, Grashey, scapular Y, and axillary views of the right shoulder. FINDINGS: Mild degenerative changes are present in the AC joint. There is mild narrowing and marginal osteophytes. The glenohumeral joint is intact without dislocation or joint space narrowing. There are no abnormal soft tissue calcifications. XR/XR shoulder RT min 2V IMPRESSION: Mild AC joint arthropathy. Electronically signed by: Son Bazan MD 02/12/2025 12:05 PM EDT RP Dictated By: Son Bazan MD Signed By: <Electronically signed by Son Bazan MD in OV> 02/12/25 1205 DD/ 1101 TD/TT: 02/12/25 1110 Reading Assistant: Adeel Rockwell MD IMG XR PROCEDURES Final Result documented in this encounter Visit Diagnoses Diagnosis Moderate persistent asthma, unspecified whether complicated- Primary Age-related osteoporosis without current pathological fracture Chronic right shoulder pain Pain in joint, shoulder region Hyperlipidemia, unspecified hyperlipidemia type Vertigo Dizziness and giddiness documented in this encounter Additional Health Concerns Assessment Noted Time PHQ-9 Depression Total Score: 8 02/12/20 25 11:31 AM EDT documented as of this encounter Care Teams Platen Press Feeder Relationship Specialty Start Date End Date NameAdeel MD [address] [place] [id number] PCP - General Family Medicine 10/29/15 documented as of this encounter
--- NOTE | ~2025-02-12 | XR_ITS ---
EXAMINATION: XR SHOULDER, RIGHT CLINICAL INFORMATION: Chronic right shoulder pain and decreased ROM COMPARISON: None available. TECHNIQUE: AP external rotation, Grashey, scapular Y, and axillary views of the right shoulder. FINDINGS: Mild degenerative changes are present in the AC joint. There is mild narrowing and marginal osteophytes. The glenohumeral joint is intact without dislocation or joint space narrowing. There are no abnormal soft tissue calcifications. XR/XR shoulder RT min 2V IMPRESSION: Mild AC joint arthropathy. Electronically signed by: Son Bazan MD 02/12/2025 12:05 PM EDT
--- OUTSIDE RECORDS SUMMARY | 2025-02-12 12:34 | XMS_ITS ---
Author Name Haroldo ROSE Claudia Claudia alonzo Veronicae Address [address] [place] [address] Phone [phone] [facility] Care Team Providers Care Instrument Maker Name Role Phone Mel Zarco Unavailable [phone] Reason for Referral Not Available Allergies, adverse [...] List Problem Status Onset Date Resolved Date Synopsis Osteoporosis Active 2024-09-13 N/A Rx: alendron ate- importance of dietary intake such as vitamin D and calcium intake, like sugary drinks and to do weight bearing exercise. Hyperlipidemia Active 2024-09-13 N/A Rx: atorva statin weight management, exercising regularly, eating a diet low in saturated or transfat, no smoking, and limiting alcohol intake. Essential (primary) hypertension Active 2024-09-13 N/A Rx: HCTZMonitor BP routinely, low salt diet, exercise as tolerable, and continue f/u care with PCP. GERD (gastroesophageal reflux disease) Active 2024-09-13 N/A Rx: omeprazole D on't lie down for at least 2 to 3 hours after eating small meals, avoid fatty foods, avoid spicy food, avoid chocolate, avoided caffeinated drinks, avoid alcoholic beverages. Arthritis Active 2024-09-13 N/A - stretching, range of motion exercise such as ( walking , cycling, or water exercise). 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 also patient made aware not to mix medications with alcohol. if patient is presenting an episode of depression to seek medical assistance or to call [facility]. sees therapist 2 times per month psychaitrist every 2-3 months 09/13/2024 patient states she feels well, patients daughter 2017 from a MVA on the month of August . denies suicidal thoughts, patient states she goes to [employer] [facility] and listen to music and it helps her. Vertigo Active 2024-09-13 N/A lying still in a quiet, darkened room may help to ease any symptoms of nausea and reduce the sensation of spinning. Other problems related to medical facilities and other health care Active 2024-09-13 N/A HYPERTENSIO N CONTINGENCY PLANLast updated: 09/13/2024Member to call for the following symptoms: BP >180/100 / Chest pain / Headache/ HR >100 Planned intervention: Encourage low sodium diet/ Discuss breathing exercises/ Encourage medication adherence BMI 29.0-29.9,adult Active 2024-09-13 N/A boubacar nt educated on the importance of diet compliance or modifications and exercise as tolerated Encounters Encounters Type Facility Date of Service Diagnosis/Co mplaint New patient, 30-44min 1 stable chronic or 2 minor; add modifier 95 for video, modifier 93 for [facility], ([place]) 09/13/2024 Major depressive disorder, single episode, moderateUnspecified asthma, uncomplicatedAge-related osteoporosis without current pathological fractureHyperlipidemia, unspecifiedEssential (primary) hypertensionGastro-esophageal reflux disease without esophagitisUnspecified osteoarthritis, unspecified siteOther specified anxiety disordersDizziness and giddinessOther problems related to medical facilities and other health care New patient, 30-44min 1 stable chronic or 2 minor; add modifier 95 for video, modifier 93 for phone [facility] 09/13/2024 New patient, 30-44min 1 stable chronic or 2 minor; add modifier 95 for video, modifier 93 for phone [facility] 09/13/2024 New patient, 30-44min 1 stable chronic or 2 minor; add modifier 95 for video, modifier 93 for phone [facility] 09/13/2024 New patient, 30-44min 1 stable chronic or 2 minor; add modifier 95 for video, modifier 93 for phone [facility], ([place]) 09/13/2024 New patient, 30-44min 1 stable chronic or 2 minor; add modifier 95 for video, modifier 93 for phone [facility] ([place]) 09/13/2024 New patient, 30-44min 1 stable chronic or 2 minor; add modifier 95 for video, modifier [address] [facility], ([place]) 09/13/2024 New patient, 30-44min 1 stable chronic or 2 minor; add modifier 95 for video, modifier [address] [facility], ([place]) 09/13/2024 New patient, 30-44min 1 stable chronic or 2 minor; add modifier 95 for video, modifier [address] [facility], ([place]) 09/13/2024 Vital Signs Date of Collection Vitals 2024-09-13 09:56:07 Height - 144.78 cmWe ight - 61.69 kgBody Mass Index (BMI) - 29.43 kg/m2BP Diastolic - 89.0 mm[Hg]BP Systolic - 148.0 mm[Hg]Pain Scale - 7.0 {score} Social History Social History Social History Observation Description Effec tive Time Current Smoking Status Never smoker 2025-01-23 2 Sex Female Gender identity Woman History of Procedures Procedures Service Procedure code Service date Servicing provider Phone# New patient, 30-44min 1 stable chronic or 2 minor; add modifier 95 for video, modifier 93 for phone [phone] No Data Available No Data Available [...] ble Advance care planning discussed and documented advance care plan or surrogate decision-maker was [...] Scale (1125F)Advance care planning discussed and documented advance care plan or surrogate decision-maker was documented in the medical record. (1123F)SBP >= 140DBP 80-89 (3079F)BMI obtained (3008F)Continue to see PCP. Follow-up with [facility] as needed for any acute or disease [...] to seek medical assistance or to call [facility]. sees therapist 2 times per month psychaitrist every 2-3 months 09/13/2024 patient states she feels well, patients daughter 2017 from a MVA on the of August . denies suicidal thoughts, patient states she goes to [employer] and listen to music and it helps her.lying still in a quiet, darkened room may help to ease any symptoms of nausea and reduce the sensation of spinning.HYPERTENSION CONTINGENCY PLANLast updated: 09/13/2024Member to call for the following symptoms: BP >180/100 / Chest pain / Headache/ HR >100 Planned intervention: Encourage low sodium diet/ Discuss breathing [...] Date Concern 2024-09-13 Visit completed by a udio and video. Patient/Guardian agreed to visit via telehealth. Introductory visit with [facility] to establish care. Informed verbal consent was [...]
== END 2025-02-12 11:19 | disposition home or self-care (01) ==
LOC: HO.HHCL 11:18
PROVIDERS: PCP Internal Medicine Geriatric Medicine; Visit Provider Internal Medicine Geriatric Medicine
DX: G89.29 Other chronic pain (principal); M25.511 Pain in right shoulder
CPT/HCPCS: 73030

== ENCOUNTER → 2025-02-12 11:35 | Outpatient (BNV) | payer OTHER, SELFPAY | PROVIDERS: PCP Internal Medicine Geriatric Medicine; Visit Provider Radiology Diagnostic Radiology | DX: M19.011 Primary osteoarthritis, right shoulder (principal) | CPT/HCPCS: 73030 ==

== ENCOUNTER 2025-02-20 10:41 | Outpatient (REF) | payer OTHER, SELFPAY ==
--- OUTSIDE RECORDS SUMMARY | 2025-02-20 11:41 | XMS_ITS | Encounter Summary ---
Author Organization [employer] Address [address] [facility] [address] [place] [address] Care Team Providers Care Lumber Checker Name Role Phone Name, Adeel PINEDA Primary Care Provider [phone] Encounter Details Date Type Department Care Team (Late st Contact Info) Description 12/03/2022 Abstract [facility] [address] [place] [address] Name, MD Adeel [address] [place] [address] Social History Tobacco Use Types Packs/Day Years [...] as of this encounter Plan of Treatment Upcoming Encounters Date Type Department Care Team (Late st Contact Info) Description 04/22/2025 1:00 PM EDT Office Visit [facility] [address] [place] [address] Ehsan, Natali, OD [address] [place] [address] documented as of this encounter Visit Diagnoses Not on filedocumented in this encounter Additional Health Concerns Assessment Noted Time PHQ-9 Depression Total Score: 0 07/06/20 22 10:48 AM EST documented as of this encounter Care Teams Lumber Checker Relationship Specialty Start Date End Date Name, MD Adeel [address] [place] [address] PCP - General Family Medicine 10/29/15 documented as of this encounter
--- OUTSIDE RECORDS SUMMARY | 2025-02-20 11:41 | XMS_ITS ---
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 sees therapist 2 times per month psychaitrist every 2-3 months 09/13/2024 patient states she feels well, patients daughter 2017 from a MVA on the month of August . denies suicidal thoughts, patient states she goes to denominational and listen to music and it helps [...] modifier 95 for video, modifier 93 for [facility], [place] 09/13/2024 Major depressive disorder, single episode, moderateUnspecified asthma, uncomplicatedAge-related osteoporosis without current pathological fractureHyperlipidemia, unspecifiedEssential (primary) hypertensionGastro-esophageal reflux disease without esophagitisUnspecified osteoarthritis, unspecified siteOther specified anxiety disordersDizziness and giddinessOther problems related to medical facilities and other health care New patient, 30-44min 1 stable chronic or 2 minor; add modifier 95 for video, modifier 93 for phone [facility] 09/13/2024 New patient, 30-44min 1 stable chronic or 2 minor; add modifier 95 for video, modifier 93 for phone [facility] 09/13/2024 New patient, 30-44min 1 stable chronic or 2 minor; add modifier 95 for video, modifier 93 for phone [facility] 09/13/2024 New patient, 30-44min 1 stable chronic or 2 minor; add modifier 95 for video, modifier 93 for phone [facility] 09/13/2024 New patient, 30-44min 1 stable chronic or 2 minor; add modifier 95 for video, modifier 93 for phone [facility] 09/13/2024 New patient, 30-44min 1 stable chronic or 2 minor; add modifier 95 for video, modifier 93 for phone [facility], [place] 09/13/2024 New patient, 30-44min 1 stable chronic or 2 minor; add modifier 95 for video, modifier 93 for phone [facility], [place] 09/13/2024 New patient, 30-44min 1 stable chronic or 2 minor; add modifier 95 for video, modifier 93 for phone [facility], [place] 09/13/2024 Vital Signs Date of Collection Vitals 2024-09-13 09:56:07 Height - 144.78 cmWe ight - 61.69 kgBody Mass Index (BMI) - 29.43 kg/m2BP Diastolic - 89.0 mm[Hg]BP Systolic - 148.0 mm[Hg]Pain Scale - 7.0 {score} Social History Social History Social History Observation Description Effec tive Time Current Smoking Status Never smoker 2025-01-24 0 Sex Female Gender identity Woman History of Procedures Procedures Service Procedure code Service date Servicing provider Phone# New patient, 30-44min 1 stable chronic or 2 minor; add modifier 95 for video, modifier 93 for phone [id number] 2024-09-13 No Data Available No Data Available [...] to seek medical assistance or to call [facility]. sees therapist 2 times per month psychaitrist every 2-3 months 09/13/2024 patient states she feels well, patients daughter 2017 from a MVA on the of August . denies suicidal thoughts, patient states she goes to denominational and listen to music and it helps [...] to visit via telehealth. Introductory visit with [facility] to establish care. Informed verbal consent was [...]
[2025-02-20 14:08] LABS: Alanine Aminotransferase 12 U/L (0-31); Albumin Level 4.5 g/dL (3.5-5.0); Alkaline Phosphatase 48 U/L (39-117); Anion Gap 12 (12-20); Aspartate Amino Transferase 21 U/L (5-31); Blood Urea Nitrogen 12 mg/dL (9-16); Calcium 9.4 mg/dL (8.4-10.2); Carbon Dioxide 25 mmol/L (22-29); Chloride 110 mmol/L (96-108); Cholesterol 232 mg/dL (<200); Estimated Glomerular Filt Rate > 60; HDL Cholesterol 53 mg/dL (>40); Potassium 4.0 mmol/L (3.3-5.1); Sodium 143 mmol/L (135-145); Total Protein 7.3 g/dL (6.5-8.0); Triglycerides 93 mg/dL (<150)
== END 2025-02-20 10:42 | disposition home or self-care (01) ==
LOC: HO.HHCL 10:41
PROVIDERS: PCP Internal Medicine Geriatric Medicine; Visit Provider Internal Medicine Geriatric Medicine
DX: E78.5 Hyperlipidemia, unspecified (principal)
CPT/HCPCS: 36415; 80053; 80061